=== PATIENT | male | born 1935 | race Caucasian/White ===

== ENCOUNTER 2019-09-27 00:11 | Inpatient (IN) | payer MEDICARE, MEDICAID, SELFPAY ==
[2019-09-27] VITALS (11 sets, daily range): BP systolic 76–151; BP diastolic 51–90; PULSE 60–105; RESP 16–24; TEMP 36.4–37.7; O2SAT 89–96; BMI 26.2
--- NOTE | ~2019-09-27 | XR_ITS ---
EXAMINATION: XR hip RT min 3V w AP pelvis DATE: 10/01/2019 10:14 INDICATION: Right hip pain. TECHNIQUE: An anteroposterior view of the pelvis and 3 views of right hip were obtained. COMPARISON: None. FINDINGS: Bone alignment is normal. No fracture. There is mild osteoarthritis of the hips. There is m ild lumbar spondylosis. IMPRESSION: 1. Mild osteoarthritis of the hips. Reviewed, dictated and finalized at location A.
--- NOTE | ~2019-09-27 | XR_ITS ---
XR chest 2V DATE: 10/01/2019 10:15 INDICATION: Shortness of breath. Pneumonia. TECHNIQUE: AP and lateral views COMPARISON: 09/28/2019 AP and lateral chest 09/27/2019 portable AP chest FINDINGS: There are bilateral lower lung infiltrates and/atelectasis, right greater than left. There may be mild residual right apical infiltrate. Heart size is within normal range considering medications associated with AP projection. There is ext ensive thoracic aortic calcification as well as aortic ectasia or aneurysm and tortuosity. No pleural effusion or pulmonary vascular congestion or pneumothorax. IMPRESSION: Bilateral lower lung infiltrate and/atelectasis, greater on the right, improved on the le ft and in the right apical area since 09/28/2019 Reviewed, dictated and finalized at location B. IMPRESSION: Bilateral lower lung infiltrate and/atelectasis, greater on the rig ht, improved on the left and in the right apical area since 09/28/2019
--- NOTE | ~2019-09-27 | CT_ITS ---
EXAMINATION: CT brain wo con INDICATION: Transient alteration of awareness COMPARISON: 10/30/2018 TECHNIQUE: Standard unenhanced head CT. The dose-length product (DLP) was 605.33 mGy-cm. The mA was a djusted according to patient size. Iterative reconstruction technique was employed. FINDINGS: There is no acute intraparenchymal hemorrhage. No evidence of mass lesion. No evidence of a cute infarction. There is mild periventricular and subcortical hypodensity probably related to small vessel ischemic disease. There is mild prominence of the sulci and ventricles related to cerebral atr ophy. Intracranial calcified cerebral atherosclerosis is noted. There are no extra-axial collections. There is no mass effect or midline shift. The orbits and soft tissues are unremarkable. There is mi ld mucosal thickening of the paranasal sinuses. A small left mastoid effusion is noted. IMPRESSION: 1. No acute intracranial abnormality. 2. Age related findings. Reviewed, dictated and finalized at location A.
--- NOTE | ~2019-09-27 | XR_ITS ---
EXAMINATION: XR chest 2V DATE: 10/05/2019 10:59 INDICATION: Shortness of breath TECHNIQUE: AP and lateral views of the chest are obtained. COMPARISON: 10/01/2019 FINDINGS: Bibasilar airspace opacities persist but have improved. There are trace pleural effusions. No pneumothorax is identified. The cardiomediastinal silhouette is stable. There is mild thoracic spo ndylosis. Suture anchors are noted in the right humeral head. IMPRESSION: 1. Improving bibasilar airspace opacities, consistent with atelectasis versus pneumonia. Reviewed, dictated and finalized at location B. IMPRESSION: 1. Improving bibasilar airspace opacities, consistent with atelectasis versus p neumonia.
--- NOTE | ~2019-09-27 | XR_ITS ---
EXAMINATION: XR chest 2V DATE: 09/28/2019 19:52 INDICATION: Pneumonia TECHNIQUE: AP and lateral views of the chest are obtained. COMPARISON: 09/27/2019 FINDINGS: Right apical opacities have slightly improved. Bilateral lower lobe airspace opacities pers ist with slight worsening on the left. There is no pleural effusion or pneumothorax. The cardiomedias tinal silhouette is normal. There is moderate thoracic spondylosis. IMPRESSION: 1. Bilateral airspace opacities with improvement in the right lung apex and worsening in the left olga g base, consistent with atelectasis versus pneumonia. Reviewed, dictated and finalized at location A. IMPRESSION: 1. Bilateral airspace opacities with improvement in the right lung apex and wor sening in the left lung base, consistent with atelectasis versus pneumonia.
--- NOTE | ~2019-09-27 | XR_ITS ---
EXAMINATION: XR chest 1V portable INDICATION: Transient alteration of awareness TECHNIQUE: Portable AP chest at 0053 hours COMPARISON: None available FINDINGS: There are minimal airspace opacities of the lung bases. There is also asymmetric opacity in the right lung apex. No pleural effusion or pneumothorax is identified. The heart size is normal. Ca lcified atherosclerosis is noted. Suture anchors are noted in the right humeral head. IMPRESSION: 1. Right apical and bibasilar opacities which could reflect atelectasis or pneumonia. Radiographic fo llow-up is recommended. Reviewed, dictated and finalized at location A. IMPRESSION: 1. Right apical and bibasilar opacities which could reflect atelectasis or pneu monia. Radiographic follow-up is recommended.
--- NOTE | 2019-09-27 00:23 | ECG_ITS ---
Measurements Intervals [place] Rate: 65 P: 62 WI: 186 QRS: 21 QRSD: 92 T: 45 QT: 410 QTc: 427 Interpretive Statements SINUS RHYTHM BORDERLINE ST ABNORMALITY- LATERAL LEADS BORDERLINE ECG Electronically Signed On 09-27-2019 7:50:24 CDT by Jagjit Cheung D.O.
--- NOTE | 2019-09-27 00:24 | ED.AMS ---
HPI - Altered Mental Status General Chief Complaint: Altered Mental Status Stated Complaint: sick case History of Present Illness HPI narrative: BIBEMS from [facility] enter for fever, weakness, confusion. There is a documented Temperature of 100.1 at the assisted. He was given tylenol prior to transport. No fever for EMS. They did note that he was hypotensive. Apparently he was also noted to be weak and more confused. He has dementia and it is not clear what his baseline is. The patient does report that he feels bad and has pain all over. History limited by dementia. Related Data Home Medications Medication Instructions Recorded Confirmed acetaminophen 325 mg PO Q6H PRN 09/27/19 09/27/19 atorvastatin 40 mg PO HS 09/27/19 09/27/19 brimonidine 1 drp OPHTHALMIC (EYE) Q8H 09/27/19 09/27/19 budesonide-formoterol [Symbicort] 2 puff INHALATION Q12H 09/27/19 09/27/19 buspirone 15 mg PO BID 09/27/19 09/27/19 cyanocobalamin (vitamin B-12) 1,000 mcg IM DAILY 09/27/19 09/27/19 diltiazem HCl [Cardizem] 120 mg PO DAILY 09/27/19 09/27/19 donepezil 10 mg PO HS 09/27/19 09/27/19 ergocalciferol (vitamin D2) 1,250 mcg PO WEEKLY 09/27/19 09/27/19 fluoxetine 20 mg PO DAILY 09/27/19 09/27/19 hydrocodone-acetaminophen [[place]] 1 tablet PO Q6H PRN 09/27/19 09/27/19 latanoprost 0.005 % OPHTHALMIC (EYE) DAILY 09/27/19 09/27/19 levothyroxine 100 mcg PO DAILY 09/27/19 09/27/19 lisinopril 2.5 mg PO DAILY 09/27/19 09/27/19 memantine 10 mg PO BID 09/27/19 09/27/19 metformin 1,000 mg PO BID 09/27/19 09/27/19 nitroglycerin 0.4 mg SUBLINGUAL PRN PRN 09/27/19 09/27/19 omeprazole 20 mg PO DAILY 07/19/20 07/19/20 pregabalin 100 mg PO BID 09/27/19 09/27/19 quetiapine [Seroquel] 100 mg PO HS 09/27/19 09/27/19 tuberculin PPD [Tubersol] 0.1 ml INTRADERMAL ONCE 09/27/19 09/27/19 Allergies Allergy/AdvReac Type Severity Reaction Status Date / Time No Known Allergies Allergy Unverified 10/30/18 19:38 Review of Systems Review of Systems: ROS unobtainable: Yes unobtainable due to mental status Constitutional: Constitutional: Reports fever(s) PMFSH Social History Social History Smoking status: Former smoker Alcohol intake: never Substance use: never Gender identity (if verbalized by the patient): Male Spiritual care concerns: No Exam Const: General: confusion and ill appearing Nutritional Appearance: well nourished Other: Oriented x1. HENMT: Mouth: Yes dry mucous membranes Eyes: Pupils: Equal, round and reactive pupils present EOM: EOMs intact bilaterally Resp: Effort & Inspection: normal respiratory effort Auscultation: clear to auscultation bilaterally Cardio: Rate: regular rate Rhythm: regular rhythm GI: GI Palp: Yes Soft to palpation and No Tenderness to palpation present (GI) Skin: General skin exam: normal color Neuro: General: moves all extremities Speech: Abnormal speech present (mildly difficult to understand) Course Vital Signs Vital signs: Vital Signs Temperature 36.4 C 09/27/19 00:15 Pulse Rate 67 09/27/19 00:15 Respiratory Rate 16 09/27/19 00:15 Blood Pressure 76/51 L 09/27/19 00:15 Pulse Oximetry 94 09/27/19 00:15 Temperature 36.4 C L 09/28/19 06:00 Pulse Rate 81 09/28/19 08:00 Respiratory Rate 18 09/28/19 08:00 Blood Pressure 121/85 09/28/19 06:00 Pulse Oximetry 94 09/28/19 08:00 MDM - Altered Mental Status MDM Narrative Medical decision making narrative: Reportedly had fever at the assisted. Mildly elevated WBCs. UA and CXR unrevealing. Creatinine up significantly from baseline. Head CT negative for acute injury Initially hypotensive. corrected rapidly with fluids. Will give fluids, swab for COVID-19 and admit for observation. Differential Diagnosis Differential diagnosis: Likely delirium, dementia and sepsis Medical Records Attestation: I reviewed the patient's medical records. Lab Data Attestation
[2019-09-27 01:02] LABS: Basophils Absolute Auto 0.1 K/mm3 (0.0-0.1); Basophils Percent Auto 0.6 % (0.2-1.2); Eosinophils Absolute Auto 0.2 K/mm3 (0-0.3); Eosinophils Percent Auto 1.4 % (0-4.4); Hematocrit 38.7 % (42.0-52.0); Hemoglobin 13.2 g/dL (14.0-18.0); Immature Granulocyte Absolute 0.13 K/mm3 (0.00-0.031); Immature Granulocyte Percent A 1.1 % (0-0.5); Lymphocytes Absolute Auto 2.34 K/mm3 (0.9-3.2); Lymphocytes Percent Auto 18.9 % (18.3-44.2); Mean Corpuscular HGB Conc 34.1 g/dl (32-36); Mean Corpuscular Hemoglobin 33.3 pg (26-34); Mean Corpuscular Volume 97.7 fl (80-100); Mean Platelet Volume 11.2 fl (7.4-10.4); Monocytes Absolute Auto 1.4 K/mm3 (0.1-0.6); Monocytes Percent Auto 11.3 % (2.6-8.5); Neutrophils Absolute Auto 8.3 K/mm3 (1.3-6.7); Neutrophils Percent Auto 66.7 % (45.5-73.1); Platelet Count Result 242 k/mm3 (150-375); Red Blood Count 3.96 M/mm3 (4.6-6.20); Red Cell Distribution Width 13.8 % (11.5-14.5); White Blood Count 12.4 K/mm3 (4.5-10.0)
[2019-09-27 01:11] LABS: INR 1.1
[2019-09-27 01:12] LABS: Partial Thromboplastin Time 27.7 SECONDS (22.3-36.8)
[2019-09-27 01:13] LABS: Lactic Acid Reflex 1.9 mmol/L (0.7-2.1)
[2019-09-27 01:25] LABS: Troponin I 0.017 ng/mL (0.000-0.034)
[2019-09-27 01:27] LABS: Alanine Aminotransferase 30 U/L (4-50); Albumin Level 4.3 g/dL (3.5-5.1); Alkaline Phosphatase 72 U/L (38-126); Aspartate Amino Transferase 80 U/L (17-59); Bilirubin,Total 0.8 mg/dL (0.2-1.3); Blood Urea Nitrogen 35 mg/dL (9-20); Calcium 9.1 mg/dL (8.4-10.2); Carbon Dioxide 22 mmol/L (22-30); Chloride 103 mmol/L (98-107); Estimated CRCL calculation 23 ml/min; Estimated Glomerular Filt Rate 25; Glucose 153 mg/dL (75-110); Potassium 4.2 mmol/L (3.4-5.0); Sodium 137 mmol/L (137-145)
[2019-09-27 01:51] LABS: CRP 3.1 mg/dL (<1.0)
[2019-09-27] MEDS: SODIUM CHLORIDE 0.9% IV 1,000 ML 999 ML IV CONT (01:52)
[2019-09-27 02:27] LABS: Add Urine Microscopic? YES; Appearance Urine Clear (Clear); Bacteria Urine Trace /hpf; Bilirubin Urine Negative (Negative); Blood Urine Negative (Negative); Color Urine Yellow (Yellow); Glucose Urine UA Negative (Negative); Ketones Urine Negative (Negative); Leukocyte Esterase Ur Negative LEU/UL (Negative); Mucus Urine Rare /lpf; Nitrate Urine Negative (Negative); Protein Urine 1+ mg/dL (Negative); RBC Urine 0-2 /hpf (0-2); Specific Grav Ur 1.018 (1.001-1.035); Urobilinogen Urine Negative mg/dL (<2.0); WBC Urine 0-3 /hpf
[2019-09-27 03:10] LABS: Alveolar/Arterial O2 Gradient 86.1 mmHg; Base Excess ABG -4.8 mEq/l (+/-2.0); Fractional Inspired Oxygen 28 %; Oxygen Content ABG 16.5 %vol (16.0-22.0); Oxygen Saturation ABG 93.8 % (95.0-100.0); Oxyhemoglobin 90.7 % THb (90.0-100.0); PCO2 ABG 36.3 mmHg (35.0-45.0); PO2 ABG 70.7 mmHg (80.0-100.0); PO2 FiO2 Ratio Arterial Blood 2.52 %; Total Hemoglobin 12.9 g/dL (12.0-18.0)
[2019-09-27 03:11] LABS: Device NASAL CANNULA; Modified Allen's Test Pass; Site Drawn RIGHT RADIAL
--- NOTE | 2019-09-27 04:35 | ADMGEN ---
This patient, Kevin Gan, was admitted to [facility] Surg Room 324-01. Patient/family oriented to hospital policies and general routines including ID bracelet, bed and alarms, visiting hours, pain management, procedures, bathroom and other care routines, personal items, smoking policy, room service/diet, and visiting hours. Valuables list has been completed. Information on how to activate the Rapid Response Team has been discussed. Patient/Family are encouraged to report perceived risks to care and to ask questions if they do not understand what they are told or what they should do.
[2019-09-27] MEDS: LACTATED RINGERS 1,000 ML 125 ML IV CONT ×2 (05:02→18:13)
--- NOTE | 2019-09-27 05:43 | PC.NURSE ---
Pt comes [facility] no medical history from [facility]. Jeni reardon says their computers are down for the time being. They are unable to give me history until they are fixed.
[2019-09-27 12:58] LABS: SARS-CoV-2 RNA PCR Negative
--- NOTE | 2019-09-27 15:17 | PM.IMHP ---
H&P: HPI History of Present Illness Chief complaint: FELICITAS, generalized weakness Narrative: Kevin Gan is a 83 year old male poor historian, mild fever and weakness from in. Covid ruled out today. FELICITAS on admission. Pt had ct head which was negative, cxr possible pneumonia. Pt is dm, psychotic behaviour and hypothyoidism, cad, high cholesterol. I do not see a ER note. Pt still has a fever today, 37.7f, however is not able to give a good history. [facility] as pt is not a good historian. information given -pt is usually oriented, yesterday could not feed himself, pt had 100.1 fever for 1 days, no cough, just confused. Not been in the hospital recently. Usually well. Pt usually walks around and is active. Requested Nurse to enter pts medical and surgical history in the notes. Review of Systems Review of Systems: ROS unobtainable: Yes unobtainable due to medical condition PMFSH Social History Social History Smoking status: Former smoker Alcohol intake: never Substance use: never Gender identity (if verbalized by the patient): Male Spiritual care concerns: No Meds Home Medications and Allergies Home Medications Medication Instructions Recorded Confirmed Type acetaminophen 325 mg PO Q6H PRN 09/27/19 09/27/19 History atorvastatin 40 mg PO HS 09/27/19 09/27/19 History brimonidine 1 drp OPHTHALMIC (EYE) Q8H 09/27/19 09/27/19 History budesonide-formoterol [Symbicort] 2 puff INHALATION Q12H 09/27/19 09/27/19 History buspirone 15 mg PO BID 09/27/19 09/27/19 History cyanocobalamin (vitamin B-12) 1,000 mcg IM DAILY 09/27/19 09/27/19 History diltiazem HCl [Cardizem] 120 mg PO DAILY 09/27/19 09/27/19 History donepezil 10 mg PO HS 09/27/19 09/27/19 History ergocalciferol (vitamin D2) 1,250 mcg PO WEEKLY 09/27/19 09/27/19 History fluoxetine 20 mg PO DAILY 09/27/19 09/27/19 History hydrocodone-acetaminophen [[place]] 1 tablet PO Q6H PRN 09/27/19 09/27/19 History latanoprost 0.005 % OPHTHALMIC (EYE) DAILY 09/27/19 09/27/19 History levothyroxine 100 mcg PO DAILY 09/27/19 09/27/19 History lisinopril 2.5 mg PO DAILY 09/27/19 09/27/19 History memantine 10 mg PO BID 09/27/19 09/27/19 History metformin 1,000 mg PO BID 09/27/19 09/27/19 History nitroglycerin 0.4 mg SUBLINGUAL PRN PRN 09/27/19 09/27/19 History omeprazole 20 mg PO DAILY 09/27/19 09/27/19 History pregabalin 100 mg PO BID 09/27/19 09/27/19 History quetiapine [Seroquel] 100 mg PO HS 09/27/19 09/27/19 History tuberculin PPD [Tubersol] 0.1 ml INTRADERMAL ONCE 09/27/19 09/27/19 History Allergies Allergy/AdvReac Type Severity Reaction Status Date / Time No Known Allergies Allergy Unverified 10/30/18 19:38 Vital Signs Vital Signs - 24 hr 09/27/19 00:15 09/27/19 00:43 09/27/19 02:03 Temperature 36.4 C 36.7 C Pulse Rate 67 64 60 Respiratory Rate 16 16 16 Blood Pressure 76/51 L 111/66 117/72 Pulse Oximetry 94 96 96 09/27/19 04:29 09/27/19 04:35 09/27/19 06:00 Temperature 36.9 C 36.9 C 36.7 C Pulse Rate 74 70 70 Respiratory Rate 16 18 20 Blood Pressure 101/58 L 105/65 116/86 Pulse Oximetry 95 93 90 09/27/19 10:00 09/27/19 14:00 Temperature 36.8 C 37.7 C H Pulse Rate 78 105 H Respiratory Rate 18 18 Blood Pressure 143/73 H 127/62 Pulse Oximetry 94 89 L Exam Const: General: other (elderly man, pleasantly confused, having a fever ) Eyes: General: appearance normal, both eyes and all related structures Pupils: Equal, round and reactive pupils present Neck: Neck: supple Chest: Chest palpation & inspection: normal inspection of the chest Resp: Effort & Inspection: normal respiratory effort Auscultation: breath sounds absent and diminished lung sounds Cardio: Jugular venous distension: no JVD Rhythm: regular rhythm Heart sounds: S1 normal heart sound present and S2 normal heart sound present GI: Inspection: normal to inspection GI Palp: No abdominal tenderness, Yes Soft to palpa
[2019-09-27] MEDS: ATORVASTATIN 40 MG TABLET PO (21:07)
[2019-09-27] MEDS: QUEtiapine FUMARATE 100 MG TABLET PO (21:07)
[2019-09-27] MEDS: busPIRone HCL 5 MG TABLET 15 MG PO (21:08)
[2019-09-27] MEDS: MEMANTINE 10 MG TABLET PO (21:08)
[2019-09-27] MEDS: DONEPEZIL HCL 10 MG TABLET PO (21:08)
[2019-09-27] MEDS: BRIMONIDINE TARTRATE 0.15% 5 ML OPHTH SOLN 1 DROP EACH EYE (21:09)
[2019-09-28 00:33] LABS: Glucose Point of Care 206 (65-105)
[2019-09-28] MEDS: LACTATED RINGERS 1,000 ML 125 ML IV CONT ×2 (03:00→16:14)
[2019-09-28 06:00] VITALS: BP 121/85; PULSE 81; RESP 18; TEMP 36.4; O2SAT 94
[2019-09-28 06:22] LABS: Hematocrit 37.5 % (42.0-52.0); Hemoglobin 12.5 g/dL (14.0-18.0); Mean Corpuscular HGB Conc 33.3 g/dl (32-36); Mean Corpuscular Hemoglobin 33.2 pg (26-34); Mean Corpuscular Volume 99.7 fl (80-100); Mean Platelet Volume 11.1 fl (7.4-10.4); Platelet Count Result 216 k/mm3 (150-375); Red Blood Count 3.76 M/mm3 (4.6-6.20); White Blood Count 14.6 K/mm3 (4.5-10.0)
[2019-09-28 06:32] LABS: Blood Urea Nitrogen 39 mg/dL (9-20); Calcium 8.4 mg/dL (8.4-10.2); Carbon Dioxide 24 mmol/L (22-30); Chloride 103 mmol/L (98-107); Estimated CRCL calculation 27 ml/min; Estimated Glomerular Filt Rate 30; Glucose 192 mg/dL (75-110); Potassium 4.2 mmol/L (3.4-5.0); Sodium 138 mmol/L (137-145)
[2019-09-28] MEDS: LEVOTHYROXINE SODIUM 100 MCG TABLET PO (06:33)
[2019-09-28] MEDS: BRIMONIDINE TARTRATE 0.15% 5 ML OPHTH SOLN 1 DROP EACH EYE ×3 (06:33→21:01)
[2019-09-28 08:00] VITALS: PULSE 81; RESP 18; O2SAT 94
[2019-09-28] MEDS: FLUoxetine HCL 20 MG CAPSULE PO (10:59)
[2019-09-28] MEDS: metFORMIN HCL 500 MG TABLET PO ×2 (11:00→16:14)
[2019-09-28] MEDS: CYANOCOBALAMIN INJ 1,000 MCG/ML VIAL 1000 MCG IM (11:01)
[2019-09-28] MEDS: busPIRone HCL 5 MG TABLET 15 MG PO ×2 (11:01→21:01)
[2019-09-28] MEDS: MEMANTINE 10 MG TABLET PO ×2 (11:03→21:01)
[2019-09-28] MEDS: PANTOPRAZOLE 40 MG TABLET PO (11:03)
[2019-09-28] MEDS: LATANOPROST 0.005% OP SOLN 2.5 ML BTL 1 DROP EACH EYE (11:03)
--- NOTE | 2019-09-28 13:31 | PM.IMPN ---
Progress Note: A&P Assessment and Plan (1) FELICITAS (acute kidney injury): Code(s): N17.9 - Acute kidney failure, unspecified Status: Acute Assessment and Plan: Pt needs fluid hydration creat is 2.5. Missing ER note, pt does not appear to have admissions here in the past Pt is from [facility] Requested Nurse to enter pts medical and surgical history in the notes And pts medication list 09/28/19 13:31 patient 83-year-old male with resident nursing was sent to emergency department with fever being tired and fatigue unfortunately patient is unable to provide any history review of symptom and there are no ER documentation available, chest x-ray showed pneumonia patient with fever most likely community-acquired pneumonia being treated with Rocephin azithromycin, will repeat chest x-ray in 2 days, will have a PT OT evaluate the patient patient does deny cough shortness of breath fever or chills at the present time (2) Fever: Code(s): R50.9 - Fever, unspecified Status: Acute Assessment and Plan: Ongoing fever and tachycardiac pt is septic will order BC, UA is negative, CXR shows Pneumonia (3) Pneumonia: Code(s): J18.9 - Pneumonia, unspecified organism Status: Acute Assessment and Plan: From Chest xray, WCC high, Pt had fevers ? CAP treat with IV rocephin and IV zithromax Subjective Date/time seen: 09/28/19 13:31 patient 83-year-old male with resident nursing was sent to emergency department with fever being tired and fatigue unfortunately patient is unable to provide any history review of symptom and there are no ER documentation available, chest x-ray showed pneumonia patient with fever most likely community-acquired pneumonia being treated with Rocephin azithromycin, will repeat chest x-ray in 2 days, will have a PT OT evaluate the patient patient does deny cough shortness of breath fever or chills at the present time Review of Systems Review of Systems: ROS unobtainable: Yes unobtainable due to medical condition Exam Narrative: Exam Narrative: elderly frail Const: General: comfortable and no acute distress HENMT: General nose exam: Normal nares present Mouth: Yes moist mucous membranes Eyes: General: appearance normal, both eyes and all related structures Sclera: sclerae normal Neck: Neck: supple Resp: Other: bilateral fair air entry with rhonchi Cardio: Rate: regular rate Rhythm: regular rhythm GI: Auscultation: normal bowel sounds Skin: General skin exam: normal color Neuro: Speech: normal speech Sensory Exam: normal sensation Extrem: General: normal to inspection Psych: Affect: Anxious affect present Objective Data Vital Signs Vital Signs: Vital Signs - 24 hr 09/27/19 14:00 09/27/19 19:25 09/27/19 20:00 Temperature 99.9 F H Pulse Rate 105 H 72 93 Respiratory Rate 18 24 H 20 Blood Pressure 127/62 Pulse Oximetry 89 L 90 09/27/19 22:00 09/28/19 06:00 09/28/19 08:00 Temperature 97.5 F L 97.5 F L Pulse Rate 93 81 81 Respiratory Rate 20 18 18 Blood Pressure 151/90 H 121/85 Pulse Oximetry 90 94 94 Intake/Output Intake/Output: Intake & Output 09/25/19 09/26/19 09/27/19 09/28/19 23:59 23:59 23:59 23:59 Intake Total 2330 1050 Output Total 120 Balance 2210 1050 Meds/Results Medications: Active Medications Generic Name Dose Route Start Last Admin Trade Name Freq PRN Reason Stop Dose Admin Acetaminophen 325 mg 09/27/19 15:41 Tylenol Tablet PO Q6H PRN pain 1-3 Hydrocodone Bitart/Acetaminophen 1 tab 09/27/19 15:41 [place] 10-325 Mg PO Q6H PRN Pain 4-10 Atorvastatin Calcium 40 mg 09/27/19 21:00 09/27/19 21:07 Lipitor PO 40 mg HS ADILSON Administration Brimonidine Tartrate 1 drop 09/27/19 22:00 09/28/19 06:33 [place] P 0.15% Ophth EACH EYE 1 drop Q8HR ADILSON Administration Budesonide/Formoterol Fumarate 2 puff 09/27/19 20:00 09/28/19 07:51
[2019-09-28 14:00] VITALS: BP 132/78; PULSE 80; RESP 18; TEMP 37.2; O2SAT 98
[2019-09-28 18:07] LABS: Glucose Point of Care 216 (65-105)
[2019-09-28] MEDS: QUEtiapine FUMARATE 100 MG TABLET PO (21:01)
[2019-09-28] MEDS: DONEPEZIL HCL 10 MG TABLET PO (21:01)
[2019-09-28] MEDS: ATORVASTATIN 40 MG TABLET PO (21:01)
[2019-09-28 21:57] VITALS: BP 139/97; PULSE 73; RESP 22; TEMP 37.4; O2SAT 90
[2019-09-29 01:51] LABS: Glucose Point of Care 191 (65-105)
[2019-09-29] MEDS: LACTATED RINGERS 1,000 ML 125 ML IV CONT ×3 (02:00→21:58)
[2019-09-29 06:00] VITALS: BP 142/63; PULSE 67; RESP 22; TEMP 37.9; O2SAT 90
[2019-09-29] MEDS: BRIMONIDINE TARTRATE 0.15% 5 ML OPHTH SOLN 1 DROP EACH EYE ×3 (06:02→21:53)
[2019-09-29] MEDS: LEVOTHYROXINE SODIUM 100 MCG TABLET PO (06:02)
[2019-09-29 06:03] LABS: Hematocrit 32.5 % (42.0-52.0); Hemoglobin 10.8 g/dL (14.0-18.0); Mean Corpuscular HGB Conc 33.2 g/dl (32-36); Mean Corpuscular Hemoglobin 33.1 pg (26-34); Mean Corpuscular Volume 99.7 fl (80-100); Mean Platelet Volume 10.6 fl (7.4-10.4); Platelet Count Result 191 k/mm3 (150-375); Red Blood Count 3.26 M/mm3 (4.6-6.20); Red Cell Distribution Width 13.7 % (11.5-14.5); White Blood Count 10.8 K/mm3 (4.5-10.0)
[2019-09-29 06:20] LABS: Blood Urea Nitrogen 31 mg/dL (9-20); Carbon Dioxide 25 mmol/L (22-30); Chloride 105 mmol/L (98-107); Estimated CRCL calculation 42 ml/min; Estimated Glomerular Filt Rate 53; Glucose 155 mg/dL (75-110); Sodium 136 mmol/L (137-145)
[2019-09-29 08:00] VITALS: PULSE 67; RESP 22; O2SAT 90
[2019-09-29] MEDS: CYANOCOBALAMIN INJ 1,000 MCG/ML VIAL 1000 MCG IM (10:13)
[2019-09-29] MEDS: metFORMIN HCL 500 MG TABLET PO ×2 (10:15→17:34)
[2019-09-29] MEDS: PANTOPRAZOLE 40 MG TABLET PO (10:15)
[2019-09-29] MEDS: busPIRone HCL 5 MG TABLET 15 MG PO ×2 (10:15→21:52)
[2019-09-29] MEDS: FLUoxetine HCL 20 MG CAPSULE PO (10:16)
[2019-09-29] MEDS: LATANOPROST 0.005% OP SOLN 2.5 ML BTL 1 DROP EACH EYE (10:16)
[2019-09-29] MEDS: MEMANTINE 10 MG TABLET PO ×2 (10:16→21:52)
[2019-09-29 14:00] VITALS: BP 140/82; PULSE 67; RESP 20; TEMP 37.1; O2SAT 100
--- NOTE | 2019-09-29 14:53 | PM.IMPN ---
Progress Note: A&P Assessment and Plan (1) FELICITAS (acute kidney injury): Code(s): N17.9 - Acute kidney failure, unspecified Status: Acute Assessment and Plan: Pt needs fluid hydration creat is 2.5. Missing ER note, pt does not appear to have admissions here in the past Pt is from [facility] Requested Nurse to enter pts medical and surgical history in the notes And pts medication list 09/29/19 14:53 patient 83-year-old male with resident nursing was sent to emergency department with fever being tired and fatigue unfortunately patient is unable to provide any history review of symptom and there are no ER documentation available, chest x-ray showed pneumonia patient with fever most likely community-acquired pneumonia being treated with Rocephin azithromycin, patient still complains cough shortness of breath, repeat x-ray showed bilateral infiltrate, will connect continue present management have PT OT evaluate the patient (2) Fever: Code(s): R50.9 - Fever, unspecified Status: Acute Assessment and Plan: Ongoing fever and tachycardiac pt is septic will order BC, UA is negative, CXR shows Pneumonia (3) Pneumonia: Code(s): J18.9 - Pneumonia, unspecified organism Status: Acute Assessment and Plan: From Chest xray, WCC high, Pt had fevers ? CAP treat with IV rocephin and IV zithromax Subjective Date/time seen: 09/29/19 14:53 patient 83-year-old male with resident nursing was sent to emergency department with fever being tired and fatigue unfortunately patient is unable to provide any history review of symptom and there are no ER documentation available, chest x-ray showed pneumonia patient with fever most likely community-acquired pneumonia being treated with Rocephin azithromycin, patient still complains cough shortness of breath, repeat x-ray showed bilateral infiltrate, will connect continue present management have PT OT evaluate the patient Review of Systems Review of Systems: All systems reviewed & are unremarkable except as noted in HPI and below Exam Narrative: Exam Narrative: elderly frail Const: General: no acute distress and uncomfortable HENMT: General nose exam: Normal nares present Mouth: Yes moist mucous membranes Eyes: General: appearance normal, both eyes and all related structures Sclera: sclerae normal Neck: Neck: supple Resp: Other: bilateral poor air entry with rhonchi Cardio: Rate: regular rate Rhythm: regular rhythm GI: Auscultation: normal bowel sounds Skin: General skin exam: normal color Neuro: Speech: normal speech Sensory Exam: normal sensation Extrem: General: normal to inspection Psych: Affect: Anxious affect present Objective Data Vital Signs Vital Signs: Vital Signs - 24 hr 09/28/19 21:57 09/29/19 06:00 09/29/19 08:00 Temperature 99.3 F 100.2 F H Pulse Rate 73 67 67 Respiratory Rate 22 H 22 H 22 H Blood Pressure 139/97 H 142/63 H Pulse Oximetry 90 90 90 Intake/Output Intake/Output: Intake & Output 09/26/19 09/27/19 09/28/19 09/29/19 23:59 23:59 23:59 23:59 Intake Total 2580 3040 2200 Output Total 120 Balance 2460 3040 2200 Meds/Results Medications: Active Medications Generic Name Dose Route Start Last Admin Trade Name Freq PRN Reason Stop Dose Admin Acetaminophen 325 mg 09/27/19 15:41 Tylenol Tablet PO Q6H PRN pain 1-3 Hydrocodone Bitart/Acetaminophen 1 tab 09/27/19 15:41 [place] 10-325 Mg PO Q6H PRN Pain 4-10 Atorvastatin Calcium 40 mg 09/27/19 21:00 09/28/19 21:01 Lipitor PO 40 mg HS ADILSON Administration Brimonidine Tartrate 1 drop 09/27/19 22:00 09/29/19 14:18 [place] P 0.15% Ophth EACH EYE 1 drop Q8HR ADILSON Administration Budesonide/Formoterol Fumarate 2 puff 09/27/19 20:00 09/29/19 08:46 Symbicort 160-4.5 Mcg (*Sp) Inhaler INHALATION 2 puff Q12HRT ADILSON Administration Buspirone HCl 15 mg 09/27/19
[2019-09-29] MEDS: DONEPEZIL HCL 10 MG TABLET PO (21:52)
[2019-09-29] MEDS: QUEtiapine FUMARATE 100 MG TABLET PO (21:52)
[2019-09-29] MEDS: ATORVASTATIN 40 MG TABLET PO (21:53)
[2019-09-29 22:00] VITALS: BP 163/78; PULSE 70; RESP 20; TEMP 37.2; O2SAT 91
[2019-09-30 06:00] VITALS: BP 146/62; PULSE 67; RESP 18; TEMP 37.2; O2SAT 93
[2019-09-30 06:04] LABS: Hemoglobin 10.4 g/dL (14.0-18.0); Mean Corpuscular HGB Conc 33.5 g/dl (32-36); Mean Corpuscular Hemoglobin 33.2 pg (26-34); Mean Platelet Volume 10.6 fl (7.4-10.4); Platelet Count Result 187 k/mm3 (150-375); Red Blood Count 3.13 M/mm3 (4.6-6.20); Red Cell Distribution Width 13.5 % (11.5-14.5); White Blood Count 9.5 K/mm3 (4.5-10.0)
[2019-09-30 06:23] LABS: Blood Urea Nitrogen 23 mg/dL (9-20); Calcium 7.9 mg/dL (8.4-10.2); Carbon Dioxide 25 mmol/L (22-30); Chloride 107 mmol/L (98-107); Estimated CRCL calculation 50 ml/min; Estimated Glomerular Filt Rate > 60; Glucose 165 mg/dL (75-110); Sodium 137 mmol/L (137-145)
[2019-09-30] MEDS: LACTATED RINGERS 1,000 ML 125 ML IV CONT ×2 (06:35→14:39)
[2019-09-30] MEDS: LEVOTHYROXINE SODIUM 100 MCG TABLET PO (06:36)
[2019-09-30] MEDS: BRIMONIDINE TARTRATE 0.15% 5 ML OPHTH SOLN 1 DROP EACH EYE ×3 (06:40→20:16)
[2019-09-30] MEDS: LATANOPROST 0.005% OP SOLN 2.5 ML BTL 1 DROP EACH EYE (08:54)
[2019-09-30] MEDS: PANTOPRAZOLE 40 MG TABLET PO (08:54)
[2019-09-30] MEDS: busPIRone HCL 5 MG TABLET 15 MG PO ×2 (08:54→20:15)
[2019-09-30] MEDS: FLUoxetine HCL 20 MG CAPSULE PO (08:54)
[2019-09-30] MEDS: CYANOCOBALAMIN INJ 1,000 MCG/ML VIAL 1000 MCG IM (08:54)
[2019-09-30] MEDS: MEMANTINE 10 MG TABLET PO ×2 (08:54→20:15)
[2019-09-30] MEDS: metFORMIN HCL 500 MG TABLET PO ×2 (08:55→17:45)
--- NOTE | 2019-09-30 12:42 | PM.IMPN ---
Progress Note: A&P Assessment and Plan (1) FELICITAS (acute kidney injury): Code(s): N17.9 - Acute kidney failure, unspecified Status: Acute Assessment and Plan: Pt needs fluid hydration creat is 2.5. Missing ER note, pt does not appear to have admissions here in the past Pt is from [facility] Requested Nurse to enter pts medical and surgical history in the notes And pts medication list 09/30/19 12:42 patient 83-year-old male with resident nursing was sent to emergency department with fever being tired and fatigue unfortunately patient is unable to provide any history review of symptom and there are no ER documentation available, chest x-ray showed pneumonia patient with fever most likely community-acquired pneumonia being treated with Rocephin azithromycin, patient still complains cough shortness of breath, repeat x-ray on 09/27 showed bilateral infiltrate, will connect continue present management will repeat checks x-ray tomorrow and further recommendation to follow, have PT OT evaluate the patient (2) Fever: Code(s): R50.9 - Fever, unspecified Status: Acute Assessment and Plan: Ongoing fever and tachycardiac pt is septic will order BC, UA is negative, CXR shows Pneumonia (3) Pneumonia: Code(s): J18.9 - Pneumonia, unspecified organism Status: Acute Assessment and Plan: From Chest xray, WCC high, Pt had fevers ? CAP treat with IV rocephin and IV zithromax Subjective Date/time seen: 09/30/19 12:42 patient 83-year-old male with resident nursing was sent to emergency department with fever being tired and fatigue unfortunately patient is unable to provide any history review of symptom and there are no ER documentation available, chest x-ray showed pneumonia patient with fever most likely community-acquired pneumonia being treated with Rocephin azithromycin, patient still complains cough shortness of breath, repeat x-ray on 09/27 showed bilateral infiltrate, will connect continue present management will repeat checks x-ray tomorrow and further recommendation to follow, have PT OT evaluate the patient Review of Systems Review of Systems: All systems reviewed & are unremarkable except as noted in HPI and below Exam Narrative: Exam Narrative: elderly frail Const: General: comfortable and no acute distress HENMT: General nose exam: Normal nares present Mouth: Yes moist mucous membranes Eyes: General: appearance normal, both eyes and all related structures Sclera: sclerae normal Neck: Neck: supple Resp: Other: bilateral fair air entry with rhonchi Cardio: Rate: regular rate Rhythm: regular rhythm GI: Auscultation: normal bowel sounds Skin: General skin exam: normal color Neuro: Speech: normal speech Sensory Exam: normal sensation Extrem: General: normal to inspection Psych: Affect: Anxious affect present Objective Data Vital Signs Vital Signs: Vital Signs - 24 hr 09/29/19 14:00 09/29/19 22:00 09/30/19 06:00 Temperature 98.7 F 99.0 F 99.0 F Pulse Rate 67 70 67 Respiratory Rate 20 20 18 Blood Pressure 140/82 163/78 H 146/62 H Pulse Oximetry 100 91 93 Intake/Output Intake/Output: Intake & Output 09/27/19 09/28/19 09/29/19 09/30/19 23:59 23:59 23:59 23:59 Intake Total 2580 3040 4580 1200 Output Total 120 Balance 2460 3040 4580 1200 Meds/Results Medications: Active Medications Generic Name Dose Route Start Last Admin Trade Name Freq PRN Reason Stop Dose Admin Acetaminophen 325 mg 09/27/19 15:41 Tylenol Tablet PO Q6H PRN pain 1-3 Hydrocodone Bitart/Acetaminophen 1 tab 09/27/19 15:41 [place] 10-325 Mg PO Q6H PRN Pain 4-10 Atorvastatin Calcium 40 mg 09/27/19 21:00 09/29/19 21:53 Lipitor PO 40 mg HS ADILSON Administration Brimonidine Tartrate 1 drop 09/27/19 22:00 09/30/19 06:40 Alphagan P 0.15% Ophth EACH EYE 1 drop Q8HR ADILSON Administration Budesonide/Formoterol Fu
[2019-09-30 14:00] VITALS: BP 160/67; PULSE 61; RESP 18; TEMP 36.7; O2SAT 92
[2019-09-30] MEDS: ACETAMINOPHEN 325 MG TABLET PO (15:52)
[2019-09-30 20:00] VITALS: PULSE 61; RESP 18; O2SAT 92
[2019-09-30] MEDS: DONEPEZIL HCL 10 MG TABLET PO (20:15)
[2019-09-30] MEDS: ATORVASTATIN 40 MG TABLET PO (20:15)
[2019-09-30] MEDS: QUEtiapine FUMARATE 100 MG TABLET PO (20:15)
[2019-09-30 21:56] VITALS: BP 156/78; PULSE 64; RESP 20; TEMP 36.8; O2SAT 92
[2019-10-01] MEDS: LACTATED RINGERS 1,000 ML 125 ML IV CONT ×3 (01:30→17:32)
[2019-10-01] MEDS: BRIMONIDINE TARTRATE 0.15% 5 ML OPHTH SOLN 1 DROP EACH EYE ×3 (04:59→21:13)
[2019-10-01] MEDS: LEVOTHYROXINE SODIUM 100 MCG TABLET PO (04:59)
[2019-10-01 06:00] VITALS: BP 173/80; PULSE 71; RESP 20; TEMP 36.8; O2SAT 92
[2019-10-01 06:08] LABS: Hematocrit 31.5 % (42.0-52.0); Hemoglobin 10.5 g/dL (14.0-18.0); Mean Corpuscular HGB Conc 33.3 g/dl (32-36); Mean Corpuscular Hemoglobin 32.8 pg (26-34); Mean Corpuscular Volume 98.4 fl (80-100); Mean Platelet Volume 10.9 fl (7.4-10.4); Platelet Count Result 212 k/mm3 (150-375); Red Cell Distribution Width 13.2 % (11.5-14.5); White Blood Count 8.5 K/mm3 (4.5-10.0)
[2019-10-01 06:23] LABS: Anion Gap 8.9 mmol/L (7-16); Blood Urea Nitrogen 17 mg/dL (9-20); Calcium 8.5 mg/dL (8.4-10.2); Carbon Dioxide 26 mmol/L (22-30); Chloride 107 mmol/L (98-107); Estimated CRCL calculation 60 ml/min; Estimated Glomerular Filt Rate > 60; Glucose 187 mg/dL (75-110); Potassium 3.9 mmol/L (3.4-5.0); Sodium 138 mmol/L (137-145)
[2019-10-01 08:00] VITALS: PULSE 71; RESP 20; O2SAT 92
[2019-10-01] MEDS: busPIRone HCL 5 MG TABLET 15 MG PO ×2 (08:22→21:12)
[2019-10-01] MEDS: CYANOCOBALAMIN INJ 1,000 MCG/ML VIAL 1000 MCG IM (08:22)
[2019-10-01] MEDS: metFORMIN HCL 500 MG TABLET PO ×2 (08:22→16:20)
[2019-10-01] MEDS: LATANOPROST 0.005% OP SOLN 2.5 ML BTL 1 DROP EACH EYE (08:23)
[2019-10-01] MEDS: FLUoxetine HCL 20 MG CAPSULE PO (08:23)
[2019-10-01] MEDS: MEMANTINE 10 MG TABLET PO ×2 (08:23→21:12)
[2019-10-01] MEDS: PANTOPRAZOLE 40 MG TABLET PO (08:24)
[2019-10-01 09:49] VITALS: BMI 10.0
--- NOTE | 2019-10-01 13:50 | PM.IMPN ---
Progress Note: A&P Assessment and Plan (1) FELICITAS (acute kidney injury): Code(s): N17.9 - Acute kidney failure, unspecified Status: Acute Assessment and Plan: Pt needs fluid hydration creat is 2.5. Missing ER note, pt does not appear to have admissions here in the past Pt is from [facility] Requested Nurse to enter pts medical and surgical history in the notes And pts medication list 10/01/19 13:50 patient 83-year-old male with resident nursing was sent to emergency department with fever being tired and fatigue unfortunately patient is unable to provide any history review of symptom and there are no ER documentation available, chest x-ray showed pneumonia patient with fever most likely community-acquired pneumonia being treated with Rocephin azithromycin, patient still complains cough shortness of breath, repeat x-ray on 09/27 showed bilateral infiltrate, will connect continue present management, repeat checks x-ray showed improvement in pneumonia and patient is clinically improving, patient also complains pain in his right hip with movement however patient is a poor historian, to further evaluate x-ray was which is negative for any acute injury will have a PT OT evaluate the pain and further recommendation to follow, if remains clinically stable, may discharge patient home tomorrow (2) Fever: Code(s): R50.9 - Fever, unspecified Status: Acute Assessment and Plan: Ongoing fever and tachycardiac pt is septic will order BC, UA is negative, CXR shows Pneumonia (3) Pneumonia: Code(s): J18.9 - Pneumonia, unspecified organism Status: Acute Assessment and Plan: From Chest xray, WCC high, Pt had fevers ? CAP treat with IV rocephin and IV zithromax Subjective Date/time seen: 10/01/19 13:50 patient 83-year-old male with resident nursing was sent to emergency department with fever being tired and fatigue unfortunately patient is unable to provide any history review of symptom and there are no ER documentation available, chest x-ray showed pneumonia patient with fever most likely community-acquired pneumonia being treated with Rocephin azithromycin, patient still complains cough shortness of breath, repeat x-ray on 09/27 showed bilateral infiltrate, will connect continue present management, repeat checks x-ray showed improvement in pneumonia and patient is clinically improving, patient also complains pain in his right hip with movement however patient is a poor historian, to further evaluate x-ray was which is negative for any acute injury will have a PT OT evaluate the pain and further recommendation to follow, if remains clinically stable, may discharge patient home tomorrow Review of Systems Review of Systems: All systems reviewed & are unremarkable except as noted in HPI and below Exam Narrative: Exam Narrative: elderly frail Const: General: comfortable and no acute distress HENMT: General nose exam: Normal nares present Mouth: Yes moist mucous membranes Eyes: General: appearance normal, both eyes and all related structures Sclera: sclerae normal Neck: Neck: supple Resp: Other: bilateral air fair entry with rhonchi Cardio: Rate: regular rate Rhythm: regular rhythm GI: Auscultation: normal bowel sounds Skin: General skin exam: normal color Neuro: Speech: normal speech Extrem: General: normal to inspection Other: bilateral lower extremity symmetrical there is no internal or external rotation Psych: Affect: Anxious affect present Objective Data Vital Signs Vital Signs: Vital Signs - 24 hr 09/30/19 14:00 09/30/19 20:00 09/30/19 21:56 Temperature 98.0 F 98.2 F Pulse Rate 61 61 64 Respiratory Rate 18 18 20 Blood Pressure 160/67 H 156/78 H Pulse Oximetry 92 92 92 10/01/19 06:00 10/01/19 08:00 Temperature 98.2 F Pulse Rate 71 71 Respiratory Rate 20 20 Blood Pressure 173/80 H Pulse Oximetry 92 92 Intake/Output Intake/Output:
[2019-10-01 14:00] VITALS: BP 151/67; PULSE 69; RESP 16; TEMP 36.4; O2SAT 90
[2019-10-01] MEDS: OLANZapine 10 MG INJ VIAL 5 MG IM (16:16)
[2019-10-01] MEDS: WATER, STERILE FOR INJECTION 10 ML VIAL XX (16:20)
[2019-10-01] MEDS: ATORVASTATIN 40 MG TABLET PO (21:12)
[2019-10-01] MEDS: DONEPEZIL HCL 10 MG TABLET PO (21:12)
[2019-10-01] MEDS: QUEtiapine FUMARATE 100 MG TABLET PO (21:13)
[2019-10-01 22:00] VITALS: BP 155/79; PULSE 66; RESP 18; TEMP 36.8; O2SAT 97
[2019-10-02] MEDS: LACTATED RINGERS 1,000 ML 125 ML IV CONT ×2 (04:24→13:46)
[2019-10-02 06:00] VITALS: BP 103/74; PULSE 81; RESP 18; TEMP 36.6; O2SAT 96
[2019-10-02 06:27] LABS: Hematocrit 32.9 % (42.0-52.0); Hemoglobin 10.9 g/dL (14.0-18.0); Mean Corpuscular HGB Conc 33.1 g/dl (32-36); Mean Corpuscular Hemoglobin 32.8 pg (26-34); Mean Corpuscular Volume 99.1 fl (80-100); Mean Platelet Volume 10.7 fl (7.4-10.4); Platelet Count Result 232 k/mm3 (150-375); Red Blood Count 3.32 M/mm3 (4.6-6.20); Red Cell Distribution Width 13.3 % (11.5-14.5); White Blood Count 8.8 K/mm3 (4.5-10.0)
[2019-10-02] MEDS: LEVOTHYROXINE SODIUM 100 MCG TABLET PO (06:37)
[2019-10-02] MEDS: BRIMONIDINE TARTRATE 0.15% 5 ML OPHTH SOLN 1 DROP EACH EYE ×3 (06:38→21:20)
[2019-10-02 06:41] LABS: Anion Gap 9.7 mmol/L (7-16); Blood Urea Nitrogen 15 mg/dL (9-20); Calcium 8.5 mg/dL (8.4-10.2); Carbon Dioxide 27 mmol/L (22-30); Chloride 107 mmol/L (98-107); Estimated CRCL calculation 54 ml/min; Estimated Glomerular Filt Rate > 60; Glucose 158 mg/dL (75-110); Potassium 3.7 mmol/L (3.4-5.0); Sodium 140 mmol/L (137-145)
[2019-10-02 07:40] VITALS: PULSE 81; RESP 18; O2SAT 96
[2019-10-02] MEDS: metFORMIN HCL 500 MG TABLET PO ×2 (08:59→16:37)
[2019-10-02] MEDS: MEMANTINE 10 MG TABLET PO ×2 (08:59→21:19)
[2019-10-02] MEDS: LATANOPROST 0.005% OP SOLN 2.5 ML BTL 1 DROP EACH EYE (08:59)
[2019-10-02] MEDS: CYANOCOBALAMIN INJ 1,000 MCG/ML VIAL 1000 MCG IM (08:59)
[2019-10-02] MEDS: busPIRone HCL 5 MG TABLET 15 MG PO ×2 (09:00→21:20)
[2019-10-02] MEDS: PANTOPRAZOLE 40 MG TABLET PO (09:00)
[2019-10-02] MEDS: FLUoxetine HCL 20 MG CAPSULE PO (09:00)
--- NOTE | 2019-10-02 12:07 | PCOTNOTE ---
10:10 - Attempted to see patient this AM. Patient asleep upon entry and required physical touch to be aroused. When asked if patient would like to participate in OT session, patient reports of feeling too tired stating, I just want to lay down . Patient refused therapy session at this time, will attempt to see patient again this PM.
--- NOTE | 2019-10-02 13:39 | PCOTNOTE ---
13:33 - Attempted to see patient for a second time this PM. Patient was asleep upon entry and required physical touch to be aroused. When asked if patient would like to participate in OT session, patient fell back asleep and was unable to respond. RN present in room and reports that patient received narcotic medication last night and early this morning, explaining the increased drowsiness. Patient did not complete OT session this date.
[2019-10-02 14:00] VITALS: BP 150/74; PULSE 63; RESP 16; TEMP 36.7; O2SAT 91
--- NOTE | 2019-10-02 14:04 | PM.IMPN ---
Progress Note: A&P Assessment and Plan (1) FELICITAS (acute kidney injury): Code(s): N17.9 - Acute kidney failure, unspecified Status: Acute Assessment and Plan: Pt needs fluid hydration creat is 2.5. Missing ER note, pt does not appear to have admissions here in the past Pt is from [facility] Requested Nurse to enter pts medical and surgical history in the notes And pts medication list 10/02/19 14:04 patient 83-year-old male with resident nursing was sent to emergency department with fever being tired and fatigue unfortunately patient is unable to provide any history review of symptom and there are no ER documentation available, chest x-ray showed pneumonia patient with fever most likely community-acquired pneumonia being treated with Rocephin azithromycin, patient still complains cough shortness of breath, repeat x-ray on 09/27 showed bilateral infiltrate, will connect continue present management, repeat checks x-ray showed improvement in pneumonia and patient is clinically improving, however today patient complains of chills he does not have a fever, blood culture is growing Acinetobacter lwoffii and coagulase-negative Staph, MRSA will consult Dr. Littlejohn for further recommendation (2) Fever: Code(s): R50.9 - Fever, unspecified Status: Acute Assessment and Plan: Ongoing fever and tachycardiac pt is septic will order BC, UA is negative, CXR shows Pneumonia (3) Pneumonia: Code(s): J18.9 - Pneumonia, unspecified organism Status: Acute Assessment and Plan: From Chest xray, WCC high, Pt had fevers ? CAP treat with IV rocephin and IV zithromax Subjective Date/time seen: 10/02/19 14:04 patient 83-year-old male with resident nursing was sent to emergency department with fever being tired and fatigue unfortunately patient is unable to provide any history review of symptom and there are no ER documentation available, chest x-ray showed pneumonia patient with fever most likely community-acquired pneumonia being treated with Rocephin azithromycin, patient still complains cough shortness of breath, repeat x-ray on 09/27 showed bilateral infiltrate, will connect continue present management, repeat checks x-ray showed improvement in pneumonia and patient is clinically improving, however today patient complains of chills he does not have a fever, blood culture is growing Acinetobacter lwoffii and coagulase-negative Staph, MRSA will consult Dr. Littlejohn for further recommendation Review of Systems Review of Systems: All systems reviewed & are unremarkable except as noted in HPI and below Exam Narrative: Exam Narrative: elderly frail Const: General: no acute distress and uncomfortable HENMT: General nose exam: Normal nares present Mouth: Yes moist mucous membranes Eyes: Sclera: sclerae normal Neck: Neck: supple Resp: Other: bilateral fair air entry with rhonchi Cardio: Rate: regular rate Rhythm: regular rhythm GI: Auscultation: normal bowel sounds Skin: General skin exam: normal color Neuro: Speech: normal speech Sensory Exam: normal sensation Extrem: General: normal to inspection Psych: Affect: Anxious affect present Objective Data Vital Signs Vital Signs: Vital Signs - 24 hr 10/01/19 22:00 10/02/19 06:00 10/02/19 07:40 Temperature 98.2 F 97.9 F Pulse Rate 66 81 81 Respiratory Rate 18 18 18 Blood Pressure 155/79 H 103/74 Pulse Oximetry 97 96 96 Intake/Output Intake/Output: Intake & Output 09/29/19 09/30/19 10/01/19 10/02/19 23:59 23:59 23:59 23:59 Intake Total 4580 5130 2900 2000 Output Total 1525 1500 200 Balance 4580 3605 1400 1800 Meds/Results Medications: Active Medications Generic Name Dose Route Start Last Admin Trade Name Freq PRN Reason Stop Dose Admin Acetaminophen 325 mg 09/27/19 15:41 09/30/19 15:52 Tylenol Tablet PO 325 mg Q6H PRN Administration pain 1-3 Hydrocodone Bitart/Aceta
--- NOTE | 2019-10-02 14:43 | PCPTNOTE ---
The PT treatment was unable to be completed today. Patient sleeping and unable to remain awake to participate. Will continue per Plan of Care frequency and duration.
--- NOTE | 2019-10-02 15:03 | WPDINFPN2 ---
Progress Note: A&P Assessment and Plan (1) Pneumonia: Code(s): J18.9 - Pneumonia, unspecified organism Status: Acute Assessment and Plan: Acinetobacter HCAP REC Imipenem # 1 / 7 days Subjective Date/time seen: 10/02/19 15:03 Objective Data Vital Signs Vital Signs: Vital Signs - 24 hr 10/01/19 22:00 10/02/19 06:00 10/02/19 07:40 Temperature 36.8 C 36.6 C Pulse Rate 66 81 81 Respiratory Rate 18 18 18 Blood Pressure 155/79 H 103/74 Pulse Oximetry 97 96 96 10/02/19 14:00 Temperature 36.7 C Pulse Rate 63 Respiratory Rate 16 Blood Pressure 150/74 H Pulse Oximetry 91 Intake/Output Intake/Output: Intake & Output 09/29/19 09/30/19 10/01/19 10/02/19 23:59 23:59 23:59 23:59 Intake Total 4580 5130 2900 2000 Output Total 1525 1500 200 Balance 4580 3605 1400 1800 Meds/Results Medications: Active Medications Generic Name Dose Route Start Last Admin Trade Name Freq PRN Reason Stop Dose Admin Acetaminophen 325 mg 09/27/19 15:41 09/30/19 15:52 Tylenol Tablet PO 325 mg Q6H PRN Administration pain 1-3 Hydrocodone Bitart/Acetaminophen 1 tab 09/27/19 15:41 10/02/19 04:25 [place] 10-325 Mg PO 1 tab Q6H PRN Administration Pain 4-10 Atorvastatin Calcium 40 mg 09/27/19 21:00 10/01/19 21:12 Lipitor PO 40 mg HS ADILSON Administration Brimonidine Tartrate 1 drop 09/27/19 22:00 10/02/19 14:45 Alphagan P 0.15% Ophth EACH EYE 1 drop Q8HR ADILSON Administration Budesonide/Formoterol Fumarate 2 puff 09/27/19 20:00 10/02/19 08:30 Symbicort 160-4.5 Mcg (*Sp) Inhaler INHALATION 2 puff Q12HRT ADILSON Administration Buspirone HCl 15 mg 09/27/19 21:00 10/02/19 09:00 Buspar PO 15 mg Q12HR ADILSON Administration Cyanocobalamin 1,000 mcg 09/28/19 09:00 10/02/19 08:59 Vitamin B-12 Inj IM 1,000 mcg DAILY ADILSON Administration Diltiazem HCl 120 mg 09/28/19 09:00 10/02/19 09:00 Cardizem Cd PO 120 mg DAILY ADILSON Administration Donepezil HCl 10 mg 09/27/19 21:00 10/01/19 21:12 Aricept PO 10 mg HS ADILSON Administration Fluoxetine HCl 20 mg 09/28/19 09:00 10/02/19 09:00 Prozac PO 20 mg DAILY ADILSON Administration Lactated Ringer's 1,000 mls @ 125 mls/hr 09/27/19 03:25 10/02/19 13:46 Lr - Lactated Ringers Iv IV CONT 125 mls/hr .Q8H ADILSON Administration Latanoprost 1 drop 09/28/19 09:00 10/02/19 08:59 Xalatan EACH EYE 1 drop DAILY ADILSON Administration Levothyroxine Sodium 100 mcg 09/28/19 06:30 10/02/19 06:37 Synthroid PO 100 mcg DAILY@0630 ADILSON Administration Memantine 10 mg 09/27/19 21:00 10/02/19 08:59 Namenda PO 10 mg Q12HR ADILSON Administration Metformin HCl 500 mg 09/28/19 08:00 10/02/19 08:59 Glucophage PO 500 mg BIDWM ADILSON Administration Nitroglycerin 0.4 mg 09/27/19 15:41 Nitrostat Subl 0.4 Mg (1/150) SUBLINGUAL PRN PRN Angina Pantoprazole Sodium 40 mg 09/28/19 09:00 10/02/19 09:00 Protonix PO 40 mg QAM ADILSON Administration Quetiapine Fumarate 100 mg 09/27/19 21:00 10/01/19 21:13 Seroquel PO 100 mg HS ADILSON Administration Radiology Results: ITS Impressions Head CT 09/27/19 10:01 IMPRESSION: 1. No acute intracranial abnormality. 2. Age related findings. Chest X-Ray 10/01/19 10:19 IMPRESSION: Bilateral lower lung infiltrate and/atelectasis, greater on the right, improved on the left and in the right apical area since 09/28/2019 Hip/Pelvis X-Ray 10/01/19 10:23 IMPRESSION: 1. Mild osteoarthritis of the hips. Labs Labs: Laboratory Results - last 24 hr 10/02/19 10/02/19 05:59 05:59 WBC 8.8 RBC 3.32 L Hgb 10.9 L Hct 32.9 L MCV 99.1 MCH 32.8 MCHC 33.1 RDW 13.3 Plt Count 232 MPV 10.7 H Sodium 140 Potassium 3.7 Chloride 107 Carbon Dioxide 27 Anion Gap 9.7 BUN 15 Creatinine 1.00 Estim Creat Clear Calc 54 Estimated GFR > 60 Glucose 1
[2019-10-02 15:04] LABS: SARS-CoV-2 RNA PCR Negative
--- NOTE | 2019-10-02 15:32 | CONS_ITS ---
DATE OF CONSULTATION: 10/02/2019 REASON FOR CONSULTATION: Bacteremia with Acinetobacter. HISTORY OF PRESENT ILLNESS: The patient is an 83-year-old male, who cannot provide any history due to dementia. He is a resident in a fci and was brought to the hospital on September 26 with fever into the 38.0 range along with decreased level of interaction. Here, he was found to have right lower lobe infiltrate, he is being given ceftriaxone and azithromycin. Blood culture positive and consultation requested. No events here in the hospital. He has no apparent prosthetic devices in place by examination and no previous encounters at this hospital since October 2018 in the emergency room. He has not required any surgical procedures while here. PRESENT MEDICATIONS: No systemic immunosuppressants. HABITS: Presumably no tobacco nor alcohol to excess. FAMILY HISTORY: Not available. ALLERGIES: NONE KNOWN. PAST MEDICAL HISTORY: Chart indicates psychosis, diabetes mellitus, hypothyroidism, CAD, hyperlipidemia. SOCIAL HISTORY: No family at the bedside and retired. REVIEW OF SYSTEMS: 14-point review attempted, not obtainable from the patient due to decreased level of consciousness and dementia. PHYSICAL EXAMINATION: GENERAL: This is an elderly male, appears his actual age. No acute distress. VITAL SIGNS: T-max 5 days ago 37.7, afebrile for the past 3 days, 150/74, 63, 16, 91%. SKIN: No rashes. Warm and dry. Pale. EENT: The conjunctivae are normal. He will not cooperate for oral exam, but brief inspection is normal. NECK: No meningismus or mass. LUNGS: Clear to auscultation. CARDIAC: Regular rate and rhythm. No murmurs or gallops. CHEST: No indwelling vascular devices. ABDOMEN: Morbidly obese, nontender, nondistended. No masses. EXTREMITIES: No clubbing, cyanosis, or edema. LABORATORY DATA: Blood cultures 1 of 2 sets coagulase-negative Staph and Acinetobacter. I reviewed the susceptibilities. His white count originally 12.4, then 14.6 the following day, now 8.8, hemoglobin 10.9, platelets are 232. Blood gases 7.36, 36, 71, 94% on 2 L. Chemistry panel today is normal other than glucose 158, similar to previous values. AST 80, ALT 30, CRP 3.1. Urinalysis 1+ protein, otherwise normal. His COVID assay was nonreactive. RADIOLOGY: I personally reviewed his chest x-ray. He has minimal right lower lobe infiltrate cleared on repeat 09/30 largely. ASSESSMENT: 1. Acinetobacter bacteremia, suspect respiratory source with healthcare-associated pneumonia. This is less likely a skin contaminant. He has no prosthetic devices in place. They also may serve as a nidus. 2. Leukocytosis and fever due to the above, resolved. 3. Coagulase-negative Staph bacteremia suspect contaminant. 4. Dementia. RECOMMENDATIONS: 1. Imipenem for a 7-day course, once daily ertapenem would also be an option if he is discharged to his fci in the meantime. 2. Supportive care underway. Thank you very much for asking me to see him. NEDA OH M.D. CATALYST CONCENTRATION OPERATOR CATALYST CONCENTRATION OPERATOR D I MT: Cande
[2019-10-02] MEDS: DONEPEZIL HCL 10 MG TABLET PO (21:20)
[2019-10-02] MEDS: QUEtiapine FUMARATE 100 MG TABLET PO (21:20)
[2019-10-02] MEDS: ATORVASTATIN 40 MG TABLET PO (21:20)
[2019-10-02 22:00] VITALS: BP 187/83; PULSE 63; RESP 20; TEMP 36.6; O2SAT 91
[2019-10-03] MEDS: LACTATED RINGERS 1,000 ML 125 ML IV CONT ×3 (00:36→19:28)
[2019-10-03 06:00] VITALS: BP 162/63; PULSE 66; RESP 20; TEMP 36.6; O2SAT 92
[2019-10-03] MEDS: BRIMONIDINE TARTRATE 0.15% 5 ML OPHTH SOLN 1 DROP EACH EYE ×3 (06:00→21:11)
[2019-10-03] MEDS: LEVOTHYROXINE SODIUM 100 MCG TABLET PO (06:00)
[2019-10-03 06:31] LABS: Hematocrit 34.5 % (42.0-52.0); Hemoglobin 11.6 g/dL (14.0-18.0); Mean Corpuscular HGB Conc 33.6 g/dl (32-36); Mean Corpuscular Hemoglobin 33.1 pg (26-34); Mean Corpuscular Volume 98.6 fl (80-100); Mean Platelet Volume 10.5 fl (7.4-10.4); Platelet Count Result 243 k/mm3 (150-375); Red Cell Distribution Width 13.1 % (11.5-14.5); White Blood Count 10.8 K/mm3 (4.5-10.0)
[2019-10-03 06:50] LABS: Anion Gap 10.5 mmol/L (7-16); Blood Urea Nitrogen 15 mg/dL (9-20); Calcium 8.8 mg/dL (8.4-10.2); Carbon Dioxide 27 mmol/L (22-30); Chloride 104 mmol/L (98-107); Estimated CRCL calculation 60 ml/min; Estimated Glomerular Filt Rate > 60; Glucose 162 mg/dL (75-110); Potassium 3.5 mmol/L (3.4-5.0); Sodium 138 mmol/L (137-145)
[2019-10-03] MEDS: MEMANTINE 10 MG TABLET PO ×2 (09:51→21:11)
[2019-10-03] MEDS: PANTOPRAZOLE 40 MG TABLET PO (09:51)
[2019-10-03] MEDS: busPIRone HCL 5 MG TABLET 15 MG PO ×2 (09:51→21:11)
[2019-10-03] MEDS: FLUoxetine HCL 20 MG CAPSULE PO (09:51)
[2019-10-03] MEDS: CYANOCOBALAMIN INJ 1,000 MCG/ML VIAL 1000 MCG IM (09:52)
[2019-10-03] MEDS: LATANOPROST 0.005% OP SOLN 2.5 ML BTL 1 DROP EACH EYE (09:52)
[2019-10-03] MEDS: metFORMIN HCL 500 MG TABLET PO ×2 (09:52→17:29)
[2019-10-03] MEDS: POTASSIUM CHLORIDE 20 MEQ TABLET 40 MEQ PO (09:52)
[2019-10-03 14:00] VITALS: BP 171/60; PULSE 67; RESP 18; TEMP 36.6; O2SAT 93
[2019-10-03] MEDS: VANCOMYCIN ORAL 125 MG/2.5 ML SYRUP PO (17:29)
[2019-10-03] MEDS: DONEPEZIL HCL 10 MG TABLET PO (21:11)
[2019-10-03] MEDS: QUEtiapine FUMARATE 100 MG TABLET PO (21:11)
[2019-10-03] MEDS: ATORVASTATIN 40 MG TABLET PO (21:11)
[2019-10-03 22:00] VITALS: BP 158/68; PULSE 65; RESP 20; TEMP 36.4; O2SAT 92
[2019-10-04] MEDS: VANCOMYCIN ORAL 125 MG/2.5 ML SYRUP PO ×4 (00:21→18:07)
[2019-10-04] MEDS: LACTATED RINGERS 1,000 ML 125 ML IV CONT ×2 (04:52→17:02)
[2019-10-04 06:00] VITALS: BP 169/71; PULSE 60; RESP 16; TEMP 37; O2SAT 94
[2019-10-04] MEDS: BRIMONIDINE TARTRATE 0.15% 5 ML OPHTH SOLN 1 DROP EACH EYE ×3 (06:11→21:30)
[2019-10-04 06:40] LABS: Hematocrit 31.7 % (42.0-52.0); Hemoglobin 10.5 g/dL (14.0-18.0); Mean Corpuscular HGB Conc 33.1 g/dl (32-36); Mean Corpuscular Hemoglobin 32.5 pg (26-34); Mean Corpuscular Volume 98.1 fl (80-100); Mean Platelet Volume 10.6 fl (7.4-10.4); Platelet Count Result 265 k/mm3 (150-375); Red Blood Count 3.23 M/mm3 (4.6-6.20)
[2019-10-04] MEDS: LEVOTHYROXINE SODIUM 100 MCG TABLET PO (06:40)
[2019-10-04 06:55] LABS: Anion Gap 9.9 mmol/L (7-16); Blood Urea Nitrogen 15 mg/dL (9-20); Calcium 8.8 mg/dL (8.4-10.2); Carbon Dioxide 27 mmol/L (22-30); Chloride 105 mmol/L (98-107); Estimated CRCL calculation 54 ml/min; Estimated Glomerular Filt Rate > 60; Glucose 171 mg/dL (75-110); Potassium 3.9 mmol/L (3.4-5.0); Sodium 138 mmol/L (137-145)
[2019-10-04] MEDS: CYANOCOBALAMIN INJ 1,000 MCG/ML VIAL 1000 MCG IM (09:51)
[2019-10-04] MEDS: busPIRone HCL 5 MG TABLET 15 MG PO ×2 (09:51→21:30)
[2019-10-04] MEDS: LATANOPROST 0.005% OP SOLN 2.5 ML BTL 1 DROP EACH EYE (09:51)
[2019-10-04] MEDS: PANTOPRAZOLE 40 MG TABLET PO (09:52)
[2019-10-04] MEDS: metFORMIN HCL 500 MG TABLET PO ×2 (09:52→17:03)
[2019-10-04] MEDS: FLUoxetine HCL 20 MG CAPSULE PO (09:52)
[2019-10-04] MEDS: MEMANTINE 10 MG TABLET PO ×2 (09:52→21:30)
[2019-10-04 14:00] VITALS: BP 159/70; PULSE 74; RESP 16; TEMP 36.7; O2SAT 100
--- NOTE | 2019-10-04 14:20 | PM.IMPN ---
Progress Note: A&P Assessment and Plan (1) FELICITAS (acute kidney injury): Code(s): N17.9 - Acute kidney failure, unspecified Status: Acute Assessment and Plan: Pt needs fluid hydration creat is 2.5. Missing ER note, pt does not appear to have admissions here in the past Pt is from [facility] Requested Nurse to enter pts medical and surgical history in the notes And pts medication list 10/03/19 patient 83-year-old male with resident nursing was sent to emergency department with fever being tired and fatigue unfortunately patient is unable to provide any history review of symptom and there are no ER documentation available, chest x-ray showed pneumonia patient with fever most likely community-acquired pneumonia being treated with Rocephin azithromycin, patient still complains cough shortness of breath, repeat x-ray on 09/27 showed bilateral infiltrate, will connect continue present management, repeat checks x-ray showed improvement in pneumonia and patient is clinically improving, however on 10/01 patient complained of chills he does not have a fever, blood culture was growing Acinetobacter lwoffii and coagulase-negative Staph, MRSA patient was seen by Dr. caro started the patient on imipenem for 7 days, later in the afternoon received a call from nursing staff the patient is having several lose BM foul smelly is patient is on antibiotic high risk of C diff will start the patient on vancomycin [address] q[address] the patient on isolation precaution. (2) Fever: Code(s): R50.9 - Fever, unspecified Status: Acute Assessment and Plan: Ongoing fever and tachycardiac pt is septic will order BC, UA is negative, CXR shows Pneumonia (3) Pneumonia: Code(s): J18.9 - Pneumonia, unspecified organism Status: Acute Assessment and Plan: From Chest xray, WCC high, Pt had fevers ? CAP treat with IV rocephin and IV zithromax (4) Diarrhea: Code(s): R19.7 - Diarrhea, unspecified Status: Acute Assessment and Plan: patient is on antibiotic has a loose bowel movement foul smelling suspect patient is a C diff started the patient on vancomycin, continue to monitor Subjective Date/time seen: 10/03/19 patient 83-year-old male with resident nursing was sent to emergency department with fever being tired and fatigue unfortunately patient is unable to provide any history review of symptom and there are no ER documentation available, chest x-ray showed pneumonia patient with fever most likely community-acquired pneumonia being treated with Rocephin azithromycin, patient still complains cough shortness of breath, repeat x-ray on 09/27 showed bilateral infiltrate, will connect continue present management, repeat checks x-ray showed improvement in pneumonia and patient is clinically improving, however on 10/01 patient complained of chills he does not have a fever, blood culture was growing Acinetobacter lwoffii and coagulase-negative Staph, MRSA patient was seen by Dr. caro started the patient on imipenem for 7 days, later in the afternoon received a call from nursing staff the patient is having several lose BM foul smelly is patient is on antibiotic high risk of C diff will start the patient on vancomycin [address] q[address] the patient on isolation precaution. Review of Systems Review of Systems: All systems reviewed & are unremarkable except as noted in HPI and below Exam Narrative: Exam Narrative: elderly frail Const: General: comfortable and no acute distress HENMT: General nose exam: Normal nares present Mouth: Yes moist mucous membranes Eyes: General: appearance normal, both eyes and all related structures Sclera: sclerae normal Neck: Neck: supple Resp: Effort & Inspection: normal respiratory effort Auscultation: clear to auscultation bilaterally Cardio: Rate: regular rate Rhythm: regular rhythm GI: Auscultation: normal bowel
--- NOTE | 2019-10-04 14:36 | PM.IMPN ---
Progress Note: A&P Assessment and Plan (1) FELICITAS (acute kidney injury): Code(s): N17.9 - Acute kidney failure, unspecified Status: Acute Assessment and Plan: Pt needs fluid hydration creat is 2.5. Missing ER note, pt does not appear to have admissions here in the past Pt is from [facility] Requested Nurse to enter pts medical and surgical history in the notes And pts medication list 10/04/19 14:36 patient 83-year-old male with resident nursing was sent to emergency department with fever being tired and fatigue unfortunately patient is unable to provide any history review of symptom and there are no ER documentation available, chest x-ray showed pneumonia patient with fever most likely community-acquired pneumonia being treated with Rocephin azithromycin, patient still complains cough shortness of breath, repeat x-ray on 09/27 showed bilateral infiltrate, will connect continue present management, repeat checks x-ray showed improvement in pneumonia and patient is clinically improving, however on 10/01 patient complained of chills he does not have a fever, blood culture was growing Acinetobacter lwoffii and coagulase-negative Staph, MRSA patient was seen by Dr. acro started the patient on imipenem for 3/7 days, on 10/02 later in the afternoon received a call from nursing staff the patient is having several lose BM foul smelly patient is on antibiotic high risk of C diff will start the patient on vancomycin [address] the patient on isolation precaution. today patient stats feeling better had 2 loose BM, denies any fever, chills or shortness of breath. (2) Fever: Code(s): R50.9 - Fever, unspecified Status: Acute Assessment and Plan: Ongoing fever and tachycardiac pt is septic will order BC, UA is negative, CXR shows Pneumonia (3) Pneumonia: Code(s): J18.9 - Pneumonia, unspecified organism Status: Acute Assessment and Plan: From Chest xray, WCC high, Pt had fevers ? CAP treat with IV rocephin and IV zithromax (4) Diarrhea: Code(s): R19.7 - Diarrhea, unspecified Status: Acute Assessment and Plan: patient is on antibiotic has a loose bowel movement foul smelling suspect patient is a C diff started the patient on vancomycin, continue to monitor Subjective Date/time seen: 10/04/19 14:36 patient 83-year-old male with resident nursing was sent to emergency department with fever being tired and fatigue unfortunately patient is unable to provide any history review of symptom and there are no ER documentation available, chest x-ray showed pneumonia patient with fever most likely community-acquired pneumonia being treated with Rocephin azithromycin, patient still complains cough shortness of breath, repeat x-ray on 09/27 showed bilateral infiltrate, will connect continue present management, repeat checks x-ray showed improvement in pneumonia and patient is clinically improving, however on 10/01 patient complained of chills he does not have a fever, blood culture was growing Acinetobacter lwoffii and coagulase-negative Staph, MRSA patient was seen by Dr. caro started the patient on imipenem for 3/7 days, on 10/02 later in the afternoon received a call from nursing staff the patient is having several lose BM foul smelly patient is on antibiotic high risk of C diff will start the patient on vancomycin [address] the patient on isolation precaution. today patient stats feeling better had 2 loose BM, denies any fever, chills or shortness of breath. Review of Systems Review of Systems: All systems reviewed & are unremarkable except as noted in HPI and below Exam Const: General: comfortable and no acute distress HENMT: General nose exam: Normal nares present Mouth: Yes moist mucous membranes Eyes: General: appearance normal, both eyes and all related structures Sclera: sclerae normal Neck: Neck: supple Resp: Eff
[2019-10-04 21:24] VITALS: BP 165/86; PULSE 71; RESP 20; TEMP 37.1; O2SAT 93
[2019-10-04] MEDS: QUEtiapine FUMARATE 100 MG TABLET PO (21:30)
[2019-10-04] MEDS: ATORVASTATIN 40 MG TABLET PO (21:30)
[2019-10-04] MEDS: DONEPEZIL HCL 10 MG TABLET PO (21:30)
[2019-10-05] MEDS: VANCOMYCIN ORAL 125 MG/2.5 ML SYRUP PO ×5 (00:15→23:34)
[2019-10-05] MEDS: LACTATED RINGERS 1,000 ML 125 ML IV CONT ×3 (01:55→22:08)
[2019-10-05 06:00] VITALS: BP 151/59; PULSE 63; RESP 20; TEMP 37; O2SAT 90
[2019-10-05] MEDS: BRIMONIDINE TARTRATE 0.15% 5 ML OPHTH SOLN 1 DROP EACH EYE ×3 (06:03→21:45)
[2019-10-05] MEDS: LEVOTHYROXINE SODIUM 100 MCG TABLET PO (06:03)
[2019-10-05 06:34] LABS: Hematocrit 32.2 % (42.0-52.0); Hemoglobin 10.7 g/dL (14.0-18.0); Mean Corpuscular HGB Conc 33.2 g/dl (32-36); Mean Corpuscular Hemoglobin 32.9 pg (26-34); Mean Corpuscular Volume 99.1 fl (80-100); Mean Platelet Volume 10.1 fl (7.4-10.4); Platelet Count Result 275 k/mm3 (150-375); Red Blood Count 3.25 M/mm3 (4.6-6.20); Red Cell Distribution Width 13.2 % (11.5-14.5); White Blood Count 11.5 K/mm3 (4.5-10.0)
[2019-10-05 07:05] LABS: Anion Gap 10.9 mmol/L (7-16); Blood Urea Nitrogen 17 mg/dL (9-20); Calcium 8.7 mg/dL (8.4-10.2); Carbon Dioxide 27 mmol/L (22-30); Chloride 102 mmol/L (98-107); Estimated CRCL calculation 67 ml/min; Estimated Glomerular Filt Rate > 60; Glucose 149 mg/dL (75-110); Potassium 3.9 mmol/L (3.4-5.0); Sodium 136 mmol/L (137-145)
--- NOTE | 2019-10-05 08:02 | WPDINFPN2 ---
Progress Note: A&P Assessment and Plan (1) Pneumonia: Code(s): J18.9 - Pneumonia, unspecified organism Status: Acute Assessment and Plan: 1. Acinetobacter HCAP 2. Chronic memory loss 3. Antibiotic associated diarrhea, possible C diff 4. CNSS bacteremia, contaminant 5. Mild leukocytosis REC Imipenem # 4 / 7 days. Need C diff assay, on Vanc #3 in meantime. Subjective Date/time seen: 10/05/19 08:02 Interval history: non verbal, no events Exam Narrative: Exam Narrative: afebrile Const: General: no acute distress Resp: Effort & Inspection: normal respiratory effort Auscultation: clear to auscultation bilaterally Cardio: Rate: regular rate Rhythm: regular rhythm Heart sounds: no gallops, no murmurs and no rubs GI: Inspection: non-distended GI Palp: Yes Soft to palpation, No Tenderness to palpation present (GI) and No Guarding due to palpation present (GI) Objective Data Vital Signs Vital Signs: Vital Signs - 24 hr 10/04/19 14:00 10/04/19 21:24 10/05/19 06:00 Temperature 36.7 C 37.1 C 37.0 C Pulse Rate 74 71 63 Respiratory Rate 16 20 20 Blood Pressure 159/70 H 165/86 H 151/59 H Pulse Oximetry 100 93 90 Intake/Output Intake/Output: Intake & Output 10/02/19 10/03/19 10/04/19 10/05/19 23:59 23:59 23:59 23:59 Intake Total 3600 3180 3600 1150 Output Total 072 150 7128 200 Balance 3000 2980 2450 950 Meds/Results Medications: Active Medications Generic Name Dose Route Start Last Admin Trade Name Freq PRN Reason Stop Dose Admin Acetaminophen 325 mg 09/27/19 15:41 09/30/19 15:52 Tylenol Tablet PO 325 mg Q6H PRN Administration pain 1-3 Hydrocodone Bitart/Acetaminophen 1 tab 09/27/19 15:41 10/04/19 18:38 [employer] 10-325 Mg PO 1 tab Q6H PRN Administration Pain 4-10 Albuterol 2.5 mg 10/03/19 11:05 Albuterol Sulf Neb 2.5mg/0.5ml INHALATION Q6HRT PRN Shortness Of Breath Atorvastatin Calcium 40 mg 09/27/19 21:00 10/04/19 21:30 Lipitor PO 40 mg HS ADILSON Administration Brimonidine Tartrate 1 drop 09/27/19 22:00 10/05/19 06:03 Alphagan P 0.15% Ophth EACH EYE 1 drop Q8HR ADILSON Administration Budesonide/Formoterol Fumarate 2 puff 09/27/19 20:00 10/04/19 20:59 Symbicort 160-4.5 Mcg (*Sp) Inhaler INHALATION 2 puff Q12HRT ADILSON Administration Buspirone HCl 15 mg 09/27/19 21:00 10/04/19 21:30 Buspar PO 15 mg Q12HR ADILSON Administration Cyanocobalamin 1,000 mcg 09/28/19 09:00 10/04/19 09:51 Vitamin B-12 Inj IM 1,000 mcg DAILY ADILSON Administration Diltiazem HCl 120 mg 09/28/19 09:00 10/04/19 09:51 Cardizem Cd PO 120 mg DAILY ADILSON Administration Donepezil HCl 10 mg 09/27/19 21:00 10/04/19 21:30 Aricept PO 10 mg HS ADILSON Administration Fluoxetine HCl 20 mg 09/28/19 09:00 10/04/19 09:52 Prozac PO 20 mg DAILY ADILSON Administration Lactated Ringer's 1,000 mls @ 125 mls/hr 09/27/19 03:25 10/05/19 01:55 Lr - Lactated Ringers Iv IV CONT 125 mls/hr .Q8H ADILSON Administration Imipenem/Cilastatin Sodium 500 mg in 100 mls @ 300 mls/hr 10/02/19 16:00 10/05/19 04:18 Primaxin 500 Mg/D5w 100 Ml IVPB 10/09/19 16:01 Infused Q6H ADILSON Infusion Ipratropium [place] 0.5 mg 10/03/19 11:07 Atrovent Neb INHALATION Q6HRT PRN Shortness Of Breath Latanoprost 1 drop 09/28/19 09:00 10/04/19 09:51 Xalatan EACH EYE 1 drop DAILY ADILSON Administration Levothyroxine Sodium 100 mcg 09/28/19 06:30 10/05/19 06:03 Synthroid PO 100 mcg DAILY@0630 ADILSON Administration Memantine 10 mg 09/27/19 21:00 10/04/19 21:30 Namenda PO 10 mg Q12HR ADILSON Administration Metformin HCl 500 mg 09/28/19 08:00 10/04/19 17:03 Glucophage PO 500 mg BIDWM ADILSON Administration Nitroglycerin 0.4 mg 09/27/19 15:41 Nitrostat Subl 0.4 Mg (1/150) SUBLINGUAL PRN PRN Angina Pantoprazole Sodium 40 mg 09/28/19 09:00 10/04/19 09:52 Protonix PO 4
[2019-10-05] MEDS: MEMANTINE 10 MG TABLET PO ×2 (09:32→21:45)
[2019-10-05] MEDS: busPIRone HCL 5 MG TABLET 15 MG PO ×2 (09:32→21:45)
[2019-10-05] MEDS: PANTOPRAZOLE 40 MG TABLET PO (09:33)
[2019-10-05] MEDS: metFORMIN HCL 500 MG TABLET PO ×2 (09:33→17:00)
[2019-10-05] MEDS: CYANOCOBALAMIN INJ 1,000 MCG/ML VIAL 1000 MCG IM (09:33)
[2019-10-05] MEDS: FLUoxetine HCL 20 MG CAPSULE PO (09:33)
[2019-10-05] MEDS: LATANOPROST 0.005% OP SOLN 2.5 ML BTL 1 DROP EACH EYE (10:48)
[2019-10-05 14:00] VITALS: BP 130/61; PULSE 74; RESP 16; TEMP 36.7; O2SAT 93
--- NOTE | 2019-10-05 14:16 | PM.IMPN ---
Progress Note: A&P Assessment and Plan (1) FELICITAS (acute kidney injury): Code(s): N17.9 - Acute kidney failure, unspecified Status: Acute Assessment and Plan: Pt needs fluid hydration creat is 2.5. Missing ER note, pt does not appear to have admissions here in the past Pt is from [facility] Requested Nurse to enter pts medical and surgical history in the notes And pts medication list 10/05/19 14:16 patient 83-year-old male with resident nursing was sent to emergency department with fever being tired and fatigue unfortunately patient is unable to provide any history review of symptom and there are no ER documentation available, chest x-ray showed pneumonia patient with fever most likely community-acquired pneumonia being treated with Rocephin azithromycin, patient still complains cough shortness of breath, repeat x-ray on 09/27 showed bilateral infiltrate, will connect continue present management, repeat checks x-ray showed improvement in pneumonia and patient is clinically improving, however on 10/01 patient complained of chills he does not have a fever, blood culture was growing Acinetobacter lwoffii and coagulase-negative Staph, MRSA patient was seen by Dr. caro started the patient on imipenem for 4/7 days, on 10/02 later in the afternoon received a call from nursing staff the patient is having several lose BM foul smelly patient is on antibiotic high risk of C diff will start the patient on vancomycin [address] the patient on isolation precaution. today patient stats feeling better had 2 loose BM, denies any fever, chills or shortness of breath, Repeat chest x-ray today shows improvement will continue present management and finish antibiotic course, will continue PT OT. (2) Fever: Code(s): R50.9 - Fever, unspecified Status: Acute Assessment and Plan: Ongoing fever and tachycardiac pt is septic will order BC, UA is negative, CXR shows Pneumonia (3) Pneumonia: Code(s): J18.9 - Pneumonia, unspecified organism Status: Acute Assessment and Plan: From Chest xray, WCC high, Pt had fevers ? CAP treat with IV rocephin and IV zithromax (4) Diarrhea: Code(s): R19.7 - Diarrhea, unspecified Status: Acute Assessment and Plan: patient is on antibiotic has a loose bowel movement foul smelling suspect patient is a C diff started the patient on vancomycin, continue to monitor Subjective Date/time seen: 10/05/19 14:16 patient 83-year-old male with resident nursing was sent to emergency department with fever being tired and fatigue unfortunately patient is unable to provide any history review of symptom and there are no ER documentation available, chest x-ray showed pneumonia patient with fever most likely community-acquired pneumonia being treated with Rocephin azithromycin, patient still complains cough shortness of breath, repeat x-ray on 09/27 showed bilateral infiltrate, will connect continue present management, repeat checks x-ray showed improvement in pneumonia and patient is clinically improving, however on 10/01 patient complained of chills he does not have a fever, blood culture was growing Acinetobacter lwoffii and coagulase-negative Staph, MRSA patient was seen by Dr. caro started the patient on imipenem for 4/7 days, on 10/02 later in the afternoon received a call from nursing staff the patient is having several lose BM foul smelly patient is on antibiotic high risk of C diff will start the patient on vancomycin [address] the patient on isolation precaution. today patient stats feeling better had 2 loose BM, denies any fever, chills or shortness of breath, Repeat chest x-ray today shows improvement will continue present management and finish antibiotic course, will continue PT OT. Review of Systems Review of Systems: ROS unobtainable: Yes unobtainable due to medical condition Exam Const: General: comfor
[2019-10-05 20:37] VITALS: PULSE 80; RESP 18
[2019-10-05] MEDS: ATORVASTATIN 40 MG TABLET PO (21:45)
[2019-10-05] MEDS: QUEtiapine FUMARATE 100 MG TABLET PO (21:45)
[2019-10-05] MEDS: DONEPEZIL HCL 10 MG TABLET PO (21:45)
[2019-10-05 22:00] VITALS: BP 163/74; PULSE 67; RESP 20; TEMP 36.8; O2SAT 91
[2019-10-06] MEDS: LEVOTHYROXINE SODIUM 100 MCG TABLET PO (05:47)
[2019-10-06] MEDS: BRIMONIDINE TARTRATE 0.15% 5 ML OPHTH SOLN 1 DROP EACH EYE ×3 (05:47→21:57)
[2019-10-06] MEDS: VANCOMYCIN ORAL 125 MG/2.5 ML SYRUP PO (05:47)
[2019-10-06] MEDS: LACTATED RINGERS 1,000 ML 125 ML IV CONT ×3 (05:48→23:36)
[2019-10-06 06:00] VITALS: BP 173/63; PULSE 66; RESP 18; TEMP 36.7; O2SAT 100
[2019-10-06 06:19] LABS: Hematocrit 31.4 % (42.0-52.0); Hemoglobin 10.4 g/dL (14.0-18.0); Mean Corpuscular HGB Conc 33.1 g/dl (32-36); Mean Corpuscular Hemoglobin 32.5 pg (26-34); Mean Corpuscular Volume 98.1 fl (80-100); Mean Platelet Volume 9.8 fl (7.4-10.4); Platelet Count Result 290 k/mm3 (150-375); Red Cell Distribution Width 13.1 % (11.5-14.5); White Blood Count 11.1 K/mm3 (4.5-10.0)
[2019-10-06 06:48] LABS: Anion Gap 11.6 mmol/L (7-16); Blood Urea Nitrogen 15 mg/dL (9-20); Calcium 8.7 mg/dL (8.4-10.2); Carbon Dioxide 28 mmol/L (22-30); Chloride 103 mmol/L (98-107); Estimated CRCL calculation 60 ml/min; Estimated Glomerular Filt Rate > 60; Glucose 134 mg/dL (75-110); Potassium 3.6 mmol/L (3.4-5.0); Sodium 139 mmol/L (137-145)
[2019-10-06] MEDS: busPIRone HCL 5 MG TABLET 15 MG PO ×2 (09:55→21:56)
[2019-10-06] MEDS: metFORMIN HCL 500 MG TABLET PO ×2 (09:55→17:58)
[2019-10-06] MEDS: CYANOCOBALAMIN INJ 1,000 MCG/ML VIAL 1000 MCG IM (09:56)
[2019-10-06] MEDS: FLUoxetine HCL 20 MG CAPSULE PO (09:56)
[2019-10-06] MEDS: LATANOPROST 0.005% OP SOLN 2.5 ML BTL 1 DROP EACH EYE (10:00)
[2019-10-06] MEDS: MEMANTINE 10 MG TABLET PO ×2 (10:00→21:56)
[2019-10-06] MEDS: PANTOPRAZOLE 40 MG TABLET PO (10:00)
--- NOTE | 2019-10-06 11:12 | PCDIET ---
Nutrition LOS Screen Complete: Pt current nutrition is Heart Healthy Diet Nutrition recommendation: Agree + Banatrol TID Last recorded weight is 87.7 kg. Bowel Motility: Liquid stool, CDiff Pending Labs Reviewed:Glucose 134 Meds Noted:B12, Metformin, Synthroid, Vancomycin Additional Notes: Seeing pt today for LOS. His appetite is good and intakes range from 80-100%. Pt with cdiff pending. We discussed banatrol today for bulking stools and aiding in microbiome health. Pt willing to try. We will send on trays TID. We will continue to monitor BMs every five days.
--- NOTE | 2019-10-06 13:22 | WPDINFPN2 ---
Progress Note: A&P Assessment and Plan (1) Pneumonia: Code(s): J18.9 - Pneumonia, unspecified organism Status: Acute Assessment and Plan: 1. Acinetobacter HCAP 2. Chronic memory loss 3. Antibiotic associated diarrhea, no C diff infection 4. CNSS bacteremia, contaminant 5. Mild leukocytosis REC Imipenem # 5 / 7 days. Stop Vanc, use loperamide. Subjective Date/time seen: 10/06/19 13:22 Interval history: no complaints Exam Narrative: Exam Narrative: afebrile Const: General: no acute distress Resp: Effort & Inspection: normal respiratory effort Auscultation: clear to auscultation bilaterally Cardio: Rate: regular rate Rhythm: regular rhythm GI: Inspection: non-distended GI Palp: Yes Soft to palpation and No Tenderness to palpation present (GI) Objective Data Vital Signs Vital Signs: Vital Signs - 24 hr 10/05/19 14:00 10/05/19 20:37 10/05/19 22:00 Temperature 36.7 C 36.8 C Pulse Rate 74 80 67 Respiratory Rate 16 18 20 Blood Pressure 130/61 163/74 H Pulse Oximetry 93 91 10/06/19 06:00 Temperature 36.7 C Pulse Rate 66 Respiratory Rate 18 Blood Pressure 173/63 H Pulse Oximetry 100 Intake/Output Intake/Output: Intake & Output 10/03/19 10/04/19 10/05/19 10/06/19 23:59 23:59 23:59 23:59 Intake Total 3180 3600 4260 1740 Output Total 200 1150 1050 700 Balance 2980 2450 3210 1040 Meds/Results Medications: Active Medications Generic Name Dose Route Start Last Admin Trade Name Freq PRN Reason Stop Dose Admin Acetaminophen 325 mg 09/27/19 15:41 09/30/19 15:52 Tylenol Tablet PO 325 mg Q6H PRN Administration pain 1-3 Hydrocodone Bitart/Acetaminophen 1 tab 09/27/19 15:41 10/04/19 18:38 [place] 10-325 Mg PO 1 tab Q6H PRN Administration Pain 4-10 Albuterol 2.5 mg 10/03/19 11:05 Albuterol Sulf Neb 2.5mg/0.5ml INHALATION Q6HRT PRN Shortness Of Breath Atorvastatin Calcium 40 mg 09/27/19 21:00 10/05/19 21:45 Lipitor PO 40 mg HS ADILSON Administration Brimonidine Tartrate 1 drop 09/27/19 22:00 10/06/19 05:47 Alphagan P 0.15% Ophth EACH EYE 1 drop Q8HR ADILSON Administration Budesonide/Formoterol Fumarate 2 puff 09/27/19 20:00 10/05/19 20:36 Symbicort 160-4.5 Mcg (*Sp) Inhaler INHALATION 2 puff Q12HRT ADILSON Administration Buspirone HCl 15 mg 09/27/19 21:00 10/06/19 09:55 Buspar PO 15 mg Q12HR ADILSON Administration Cyanocobalamin 1,000 mcg 09/28/19 09:00 10/06/19 09:56 Vitamin B-12 Inj IM 1,000 mcg DAILY ADILSON Administration Diltiazem HCl 120 mg 09/28/19 09:00 10/06/19 09:56 Cardizem Cd PO 120 mg DAILY ADILSON Administration Donepezil HCl 10 mg 09/27/19 21:00 10/05/19 21:45 Aricept PO 10 mg HS ADILSON Administration Fluoxetine HCl 20 mg 09/28/19 09:00 10/06/19 09:56 Prozac PO 20 mg DAILY ADILSON Administration Lactated Ringer's 1,000 mls @ 125 mls/hr 09/27/19 03:25 10/06/19 05:48 Lr - Lactated Ringers Iv IV CONT 125 mls/hr .Q8H ADILSON Administration Imipenem/Cilastatin Sodium 500 mg in 100 mls @ 300 mls/hr 10/02/19 16:00 10/06/19 10:24 Primaxin 500 Mg/D5w 100 Ml IVPB 10/09/19 16:01 Infused Q6H ADILSON Infusion Ipratropium [place] 0.5 mg 10/03/19 11:07 Atrovent Neb INHALATION Q6HRT PRN Shortness Of Breath Latanoprost 1 drop 09/28/19 09:00 10/06/19 10:00 Xalatan EACH EYE 1 drop DAILY ADILSON Administration Levothyroxine Sodium 100 mcg 09/28/19 06:30 10/06/19 05:47 Synthroid PO 100 mcg DAILY@0630 ADILSON Administration Loperamide HCl 2 mg 10/06/19 13:22 Loperamide Hcl PO PRN PRN Diarrhea Memantine 10 mg 09/27/19 21:00 10/06/19 10:00 Namenda PO 10 mg Q12HR ADILSON Administration Metformin HCl 500 mg 09/28/19 08:00 10/06/19 09:55 Glucophage PO 500 mg BIDWM ADILSON Administration Nitroglycerin 0.4 mg 09/27/19 15:41 Nitrostat Subl 0.4 Mg (1/150) SUBLINGUAL PRN PRN Angina
[2019-10-06 14:00] VITALS: BP 170/73; PULSE 66; RESP 18; TEMP 36.5; O2SAT 97
--- NOTE | 2019-10-06 14:38 | PM.IMPN ---
Progress Note: A&P Assessment and Plan (1) FELICITAS (acute kidney injury): Code(s): N17.9 - Acute kidney failure, unspecified Status: Acute Assessment and Plan: Pt needs fluid hydration creat is 2.5. Missing ER note, pt does not appear to have admissions here in the past Pt is from [facility] Requested Nurse to enter pts medical and surgical history in the notes And pts medication list 10/06/19 14:38 patient 83-year-old male with resident nursing was sent to emergency department with fever being tired and fatigue unfortunately patient is unable to provide any history review of symptom and there are no ER documentation available, chest x-ray showed pneumonia patient with fever most likely community-acquired pneumonia being treated with Rocephin azithromycin, patient still complains cough shortness of breath, repeat x-ray on 09/27 showed bilateral infiltrate, will connect continue present management, repeat checks x-ray showed improvement in pneumonia and patient is clinically improving, however on 10/01 patient complained of chills he does not have a fever, blood culture was growing Acinetobacter lwoffii and coagulase-negative Staph, MRSA patient was seen by Dr. caro started the patient on imipenem for 4/7 days, on 10/02 later in the afternoon received a call from nursing staff the patient is having several lose BM foul smelly patient is on antibiotic high risk of C diff will start the patient on vancomycin [address] the patient on isolation precaution. today patient stats feeling better had 2 loose BM, denies any fever, chills or shortness of breath, Repeat chest x-ray 010/04 showed improvement, patient C diff is negative, stopped Vancomycin, will continue present management and finish antibiotic course 07/15, will continue PT OT. (2) Fever: Code(s): R50.9 - Fever, unspecified Status: Acute Assessment and Plan: Ongoing fever and tachycardiac pt is septic will order BC, UA is negative, CXR shows Pneumonia (3) Pneumonia: Code(s): J18.9 - Pneumonia, unspecified organism Status: Acute Assessment and Plan: From Chest xray, WCC high, Pt had fevers ? CAP treat with IV rocephin and IV zithromax (4) Diarrhea: Code(s): R19.7 - Diarrhea, unspecified Status: Acute Assessment and Plan: patient is on antibiotic has a loose bowel movement foul smelling suspect patient is a C diff started the patient on vancomycin, continue to monitor Subjective Date/time seen: 10/06/19 14:38 patient 83-year-old male with resident nursing was sent to emergency department with fever being tired and fatigue unfortunately patient is unable to provide any history review of symptom and there are no ER documentation available, chest x-ray showed pneumonia patient with fever most likely community-acquired pneumonia being treated with Rocephin azithromycin, patient still complains cough shortness of breath, repeat x-ray on 09/27 showed bilateral infiltrate, will connect continue present management, repeat checks x-ray showed improvement in pneumonia and patient is clinically improving, however on 10/01 patient complained of chills he does not have a fever, blood culture was growing Acinetobacter lwoffii and coagulase-negative Staph, MRSA patient was seen by Dr. caro started the patient on imipenem for 4/7 days, on 10/02 later in the afternoon received a call from nursing staff the patient is having several lose BM foul smelly patient is on antibiotic high risk of C diff will start the patient on vancomycin [address] the patient on isolation precaution. today patient stats feeling better had 2 loose BM, denies any fever, chills or shortness of breath, Repeat chest x-ray 0n 10/04 showed improvement, patient C diff is negative, stopped Vancomycin, will continue present management and finish antibiotic course 07/15, will continue PT OT. Review of Systems Re
[2019-10-06 19:39] VITALS: PULSE 67; RESP 18
[2019-10-06 21:36] VITALS: BP 179/80; PULSE 69; RESP 16; TEMP 36.5; O2SAT 93
[2019-10-06] MEDS: QUEtiapine FUMARATE 100 MG TABLET PO (21:56)
[2019-10-06] MEDS: DONEPEZIL HCL 10 MG TABLET PO (21:56)
[2019-10-06] MEDS: ATORVASTATIN 40 MG TABLET PO (21:56)
[2019-10-07] MEDS: BRIMONIDINE TARTRATE 0.15% 5 ML OPHTH SOLN 1 DROP EACH EYE ×3 (05:17→21:12)
[2019-10-07] MEDS: LEVOTHYROXINE SODIUM 100 MCG TABLET PO (05:17)
[2019-10-07 06:00] VITALS: BP 154/79; PULSE 62; RESP 18; TEMP 36.2; O2SAT 90
[2019-10-07] MEDS: LACTATED RINGERS 1,000 ML 125 ML IV CONT ×3 (07:40→21:35)
[2019-10-07] MEDS: MEMANTINE 10 MG TABLET PO ×2 (07:51→21:10)
[2019-10-07] MEDS: busPIRone HCL 5 MG TABLET 15 MG PO ×2 (07:51→21:11)
[2019-10-07] MEDS: FLUoxetine HCL 20 MG CAPSULE PO (07:51)
[2019-10-07] MEDS: CYANOCOBALAMIN INJ 1,000 MCG/ML VIAL 1000 MCG IM (07:52)
[2019-10-07] MEDS: metFORMIN HCL 500 MG TABLET PO ×2 (07:52→17:13)
[2019-10-07] MEDS: LATANOPROST 0.005% OP SOLN 2.5 ML BTL 1 DROP EACH EYE (07:53)
[2019-10-07] MEDS: PANTOPRAZOLE 40 MG TABLET PO (07:53)
[2019-10-07 08:00] VITALS: PULSE 62; RESP 18; O2SAT 90
--- NOTE | 2019-10-07 12:30 | PM.IMPN ---
Progress Note: A&P Assessment and Plan (1) FELICITAS (acute kidney injury): Code(s): N17.9 - Acute kidney failure, unspecified Status: Acute Assessment and Plan: Pt needs fluid hydration creat is 2.5. Missing ER note, pt does not appear to have admissions here in the past Pt is from [facility] Requested Nurse to enter pts medical and surgical history in the notes And pts medication list 10/07/19 12:30 patient 83-year-old male with resident nursing was sent to emergency department with fever being tired and fatigue unfortunately patient is unable to provide any history review of symptom and there are no ER documentation available, chest x-ray showed pneumonia patient with fever most likely community-acquired pneumonia being treated with Rocephin azithromycin, patient still complains cough shortness of breath, repeat x-ray on 09/27 showed bilateral infiltrate, will connect continue present management, repeat checks x-ray showed improvement in pneumonia and patient is clinically improving, however on 10/01 patient complained of chills he does not have a fever, blood culture was growing Acinetobacter lwoffii and coagulase-negative Staph, MRSA patient was seen by Dr. caro started the patient on imipenem for 4/7 days, on 10/02 later in the afternoon received a call from nursing staff the patient is having several lose BM foul smelly patient is on antibiotic high risk of C diff will start the patient on vancomycin [address] the patient on isolation precaution. today patient stats feeling better had 2 loose BM, denies any fever, chills or shortness of breath, Repeat chest x-ray 010/04 showed improvement, patient C diff is negative, stopped Vancomycin, will continue present management and finish antibiotic course 08/15, will discharge the patient tomorrow, will continue PT OT. (2) Fever: Code(s): R50.9 - Fever, unspecified Status: Acute Assessment and Plan: Ongoing fever and tachycardiac pt is septic will order BC, UA is negative, CXR shows Pneumonia (3) Pneumonia: Code(s): J18.9 - Pneumonia, unspecified organism Status: Acute Assessment and Plan: From Chest xray, WCC high, Pt had fevers ? CAP treat with IV rocephin and IV zithromax (4) Diarrhea: Code(s): R19.7 - Diarrhea, unspecified Status: Acute Assessment and Plan: patient is on antibiotic has a loose bowel movement foul smelling suspect patient is a C diff started the patient on vancomycin, continue to monitor Subjective Date/time seen: 10/07/19 12:30 patient 83-year-old male with resident nursing was sent to emergency department with fever being tired and fatigue unfortunately patient is unable to provide any history review of symptom and there are no ER documentation available, chest x-ray showed pneumonia patient with fever most likely community-acquired pneumonia being treated with Rocephin azithromycin, patient still complains cough shortness of breath, repeat x-ray on 09/27 showed bilateral infiltrate, will connect continue present management, repeat checks x-ray showed improvement in pneumonia and patient is clinically improving, however on 10/01 patient complained of chills he does not have a fever, blood culture was growing Acinetobacter lwoffii and coagulase-negative Staph, MRSA patient was seen by Dr. caro started the patient on imipenem for 4/7 days, on 10/02 later in the afternoon received a call from nursing staff the patient is having several lose BM foul smelly patient is on antibiotic high risk of C diff will start the patient on vancomycin [address] the patient on isolation precaution. today patient stats feeling better had 2 loose BM, denies any fever, chills or shortness of breath, Repeat chest x-ray 0n 10/04 showed improvement, patient C diff is negative, stopped Vancomycin, will continue present management and finish antibiotic course 08/15, will d
--- NOTE | 2019-10-07 12:43 | PCOTNOTE ---
Unable to complete OT treatment this date. Patient declines all bathing due to c/o too cold and declines all UE strengthening and transfers due to c/o too tired. Will continue per plan of care.
[2019-10-07 14:00] VITALS: BP 175/69; PULSE 64; RESP 16; TEMP 36.7; O2SAT 90
--- NOTE | 2019-10-07 16:34 | WPDINFPN2 ---
Progress Note: A&P Assessment and Plan (1) Pneumonia: Code(s): J18.9 - Pneumonia, unspecified organism Status: Acute Assessment and Plan: 1. Acinetobacter HCAP, CXR improving 2. Chronic memory loss 3. Antibiotic associated diarrhea, no C diff infection 4. CNSS bacteremia, contaminant 5. Mild leukocytosis REC Imipenem # 6 / 7 days. No oral followup. Will sign off. Subjective Date/time seen: 10/07/19 16:34 Interval history: up to BR with assist Exam Narrative: Exam Narrative: afebrile Const: General: no acute distress Resp: Effort & Inspection: normal respiratory effort Auscultation: clear to auscultation bilaterally Objective Data Vital Signs Vital Signs: Vital Signs - 24 hr 10/06/19 19:39 10/06/19 21:36 10/07/19 06:00 Temperature 36.5 C 36.2 C L Pulse Rate 67 69 62 Respiratory Rate 18 16 18 Blood Pressure 179/80 H 154/79 H Pulse Oximetry 93 90 10/07/19 08:00 10/07/19 14:00 Temperature 36.7 C Pulse Rate 62 64 Respiratory Rate 18 16 Blood Pressure 175/69 H Pulse Oximetry 90 90 Intake/Output Intake/Output: Intake & Output 10/04/19 10/05/19 10/06/19 10/07/19 23:59 23:59 23:59 23:59 Intake Total 3600 4260 4600 1910 Output Total 1150 1050 900 650 Balance 2450 3210 3700 1260 Meds/Results Medications: Active Medications Generic Name Dose Route Start Last Admin Trade Name Freq PRN Reason Stop Dose Admin Acetaminophen 325 mg 09/27/19 15:41 09/30/19 15:52 Tylenol Tablet PO 325 mg Q6H PRN Administration pain 1-3 Albuterol 2.5 mg 10/03/19 11:05 Albuterol Sulf Neb 2.5mg/0.5ml INHALATION Q6HRT PRN Shortness Of Breath Atorvastatin Calcium 40 mg 09/27/19 21:00 10/06/19 21:56 Lipitor PO 40 mg HS ADILSON Administration Brimonidine Tartrate 1 drop 09/27/19 22:00 10/07/19 15:10 Alphagan P 0.15% Ophth EACH EYE 1 drop Q8HR ADILSON Administration Budesonide/Formoterol Fumarate 2 puff 07/19/20 20:00 10/07/19 08:14 Symbicort 160-4.5 Mcg (*Sp) Inhaler INHALATION 2 puff Q12HRT ADILSON Administration Buspirone HCl 15 mg 09/27/19 21:00 10/07/19 07:51 Buspar PO 15 mg Q12HR ADILSON Administration Cyanocobalamin 1,000 mcg 09/28/19 09:00 10/07/19 07:52 Vitamin B-12 Inj IM 1,000 mcg DAILY ADILSON Administration Diltiazem HCl 120 mg 09/28/19 09:00 10/07/19 07:52 Cardizem Cd PO 120 mg DAILY ADILSON Administration Donepezil HCl 10 mg 09/27/19 21:00 10/06/19 21:56 Aricept PO 10 mg HS ADILSON Administration Fluoxetine HCl 20 mg 09/28/19 09:00 10/07/19 07:51 Prozac PO 20 mg DAILY ADILSON Administration Lactated Ringer's 1,000 mls @ 125 mls/hr 09/27/19 03:25 10/07/19 07:40 Lr - Lactated Ringers Iv IV CONT 125 mls/hr .Q8H ADILSON Administration Imipenem/Cilastatin Sodium 500 mg in 100 mls @ 300 mls/hr 10/02/19 16:00 10/07/19 10:25 Primaxin 500 Mg/D5w 100 Ml IVPB 10/09/19 16:01 Infused Q6H ADILSNO Infusion Ipratropium Aspen 0.5 mg 10/03/19 11:07 Atrovent Neb INHALATION Q6HRT PRN Shortness Of Breath Latanoprost 1 drop 09/28/19 09:00 10/07/19 07:53 Xalatan EACH EYE 1 drop DAILY ADILSON Administration Levothyroxine Sodium 100 mcg 09/28/19 06:30 10/07/19 05:17 Synthroid PO 100 mcg DAILY@0630 ADILSON Administration Loperamide HCl 2 mg 10/06/19 13:22 Loperamide Hcl PO PRN PRN Diarrhea Memantine 10 mg 09/27/19 21:00 10/07/19 07:51 Namenda PO 10 mg Q12HR ADILSON Administration Metformin HCl 500 mg 09/28/19 08:00 10/07/19 07:52 Glucophage PO 500 mg BIDWM ADILSON Administration Nitroglycerin 0.4 mg 09/27/19 15:41 Nitrostat Subl 0.4 Mg (1/150) SUBLINGUAL PRN PRN Angina Pantoprazole Sodium 40 mg 09/28/19 09:00 10/07/19 07:53 Protonix PO 40 mg QAM ADILSON Administration Quetiapine Fumarate 100 mg 09/27/19 21:00 10/06/19 21:56 Seroquel PO 100 mg HS ADILSON Administration Radiology Results:
[2019-10-07 20:00] VITALS: PULSE 64; RESP 16; O2SAT 90
[2019-10-07] MEDS: DONEPEZIL HCL 10 MG TABLET PO (21:11)
[2019-10-07] MEDS: ATORVASTATIN 40 MG TABLET PO (21:11)
[2019-10-07] MEDS: QUEtiapine FUMARATE 100 MG TABLET PO (21:12)
[2019-10-07 22:00] VITALS: BP 192/65; PULSE 65; RESP 16; TEMP 36.9; O2SAT 91
[2019-10-08 01:00] VITALS: BP 158/80
[2019-10-08 06:00] VITALS: BP 174/68; PULSE 60; RESP 18; TEMP 37; O2SAT 91
[2019-10-08] MEDS: hydrALAZINE HCL 20 MG/ML VIAL 5 MG IV PUSH (06:00)
[2019-10-08 08:00] VITALS: PULSE 60; RESP 18; O2SAT 91
[2019-10-08] MEDS: metFORMIN HCL 500 MG TABLET PO ×2 (09:52→18:40)
[2019-10-08] MEDS: busPIRone HCL 5 MG TABLET 15 MG PO ×2 (09:53→20:05)
[2019-10-08] MEDS: LEVOTHYROXINE SODIUM 100 MCG TABLET PO (09:54)
[2019-10-08] MEDS: PANTOPRAZOLE 40 MG TABLET PO (09:54)
[2019-10-08] MEDS: CYANOCOBALAMIN INJ 1,000 MCG/ML VIAL 1000 MCG IM (09:55)
[2019-10-08] MEDS: MEMANTINE 10 MG TABLET PO ×2 (09:56→20:05)
[2019-10-08] MEDS: LATANOPROST 0.005% OP SOLN 2.5 ML BTL 1 DROP EACH EYE (09:56)
[2019-10-08] MEDS: FLUoxetine HCL 20 MG CAPSULE PO (09:56)
[2019-10-08 10:59] LABS: SARS-CoV-2 RNA PCR Negative
--- NOTE | 2019-10-08 12:23 | PM.DS ---
DS: Admitting Diagnosis Admitting Diagnosis Admitting Diagnosis: Acute kidney failure, unspecified DS: Discharge Diagnosis Discharge Diagnosis (1) FELICITAS (acute kidney injury): Code(s): N17.9 - Acute kidney failure, unspecified Status: Acute Assessment and Plan: Pt needs fluid hydration creat is 2.5. Missing ER note, pt does not appear to have admissions here in the past Pt is from [facility] Requested Nurse to enter pts medical and surgical history in the notes And pts medication list 10/07/19 12:30 patient 83-year-old male with resident nursing was sent to emergency department with fever being tired and fatigue unfortunately patient is unable to provide any history review of symptom and there are no ER documentation available, chest x-ray showed pneumonia patient with fever most likely community-acquired pneumonia being treated with Rocephin azithromycin, patient still complains cough shortness of breath, repeat x-ray on 09/27 showed bilateral infiltrate, will connect continue present management, repeat checks x-ray showed improvement in pneumonia and patient is clinically improving, however on 10/01 patient complained of chills he does not have a fever, blood culture was growing Acinetobacter lwoffii and coagulase-negative Staph, MRSA patient was seen by Dr. caro started the patient on imipenem for 4/7 days, on 10/02 later in the afternoon received a call from nursing staff the patient is having several lose BM foul smelly patient is on antibiotic high risk of C diff will start the patient on vancomycin [address] q[address] the patient on isolation precaution. today patient stats feeling better had 2 loose BM, denies any fever, chills or shortness of breath, Repeat chest x-ray 0n 10/04 showed improvement, patient C diff is negative, stopped Vancomycin, will continue present management and finish antibiotic course 08/15, will discharge the patient tomorrow, will continue PT OT. (2) Fever: Code(s): R50.9 - Fever, unspecified Status: Acute Assessment and Plan: Ongoing fever and tachycardiac pt is septic will order BC, UA is negative, CXR shows Pneumonia (3) Pneumonia: Code(s): J18.9 - Pneumonia, unspecified organism Status: Acute Assessment and Plan: From Chest xray, WCC high, Pt had fevers ? CAP treat with IV rocephin and IV zithromax (4) Diarrhea: Code(s): R19.7 - Diarrhea, unspecified Status: Acute Assessment and Plan: patient is on antibiotic has a loose bowel movement foul smelling suspect patient is a C diff started the patient on vancomycin, continue to monitor DS: Summary Hospital Course Reason for hospitalization: Chief complaint: FELICITAS, generalized weakness Narrative: Kevin Gan is a 83 year old male poor historian, mild fever and weakness from [place]. Covid ruled out today. FELICITAS on admission. Pt had ct head which was negative, cxr possible pneumonia. Pt is dm, psychotic behaviour and hypothyoidism, cad, high cholesterol. I do not see a ER note. Pt still has a fever today, 37.7f, however is not able to give a good history. Tried calling [facility]- as pt is not a good historian. information given -pt is usually oriented, yesterday could not feed himself, pt had 100.1 fever for 1 days, no cough, just confused. Not been in the hospital recently. Usually well. Pt usually walks around and is active. Requested Nurse to enter pts medical and surgical history in the notes. Hospital Course: 10/07/19 12:30 patient 83-year-old male with resident nursing was sent to emergency department with fever being tired and fatigue unfortunately patient is unable to provide any history review of symptom and there are no ER documentation available, chest x-ray showed pneumonia patient with fever most likely community-acquired pneumonia being treated with Rocephin azithromycin, patient still complains cough shortness of breath, repeat x-ray on 09/27 showed carlos
[2019-10-08 14:00] VITALS: BP 158/86; PULSE 66; RESP 18; TEMP 36.9; O2SAT 93
--- NOTE | 2019-10-08 14:50 | PCOTNOTE ---
Upon arrival patient was difficult to arouse due to increased tiredness. Patient declined to participate in therapy session this date due to patient reporting to wanting to sleep and is too tired 10/08/2019.
[2019-10-08] MEDS: BRIMONIDINE TARTRATE 0.15% 5 ML OPHTH SOLN 1 DROP EACH EYE ×2 (16:13→20:06)
[2019-10-08 20:00] VITALS: PULSE 66; RESP 18; O2SAT 93
[2019-10-08] MEDS: ATORVASTATIN 40 MG TABLET PO (20:04)
[2019-10-08] MEDS: DONEPEZIL HCL 10 MG TABLET PO (20:05)
[2019-10-08] MEDS: QUEtiapine FUMARATE 100 MG TABLET PO (20:06)
== END 2019-10-08 21:35 | DRG 871 ==
LOC: ANHED 00:28 → ANH3MEDSUR 04:06
PROVIDERS: Family Medicine; Admitting Provider Family Medicine; Emergency Provider Emergency Medicine; PCP Internal Medicine; Visit Provider Family Medicine
DX: A41.59 Other Gram-negative sepsis (principal); J15.6 Pneumonia due to other Gram-negative bacteria; N17.9 Acute kidney failure, unspecified; K52.1 Toxic gastroenteritis and colitis; T36.95XA Adverse effect of unspecified systemic antibiotic, initial encounter; Z20.828 Contact with and (suspected) exposure to other viral communicable diseases; D72.829 Elevated white blood cell count, unspecified; F03.90 Unspecified dementia, unspecified severity, without behavioral disturbance, psychotic disturbance, mood disturbance, and anxiety; E03.9 Hypothyroidism, unspecified; E11.9 Type 2 diabetes mellitus without complications; I25.10 Atherosclerotic heart disease of native coronary artery without angina pectoris; E78.5 Hyperlipidemia, unspecified; F29 Unspecified psychosis not due to a substance or known physiological condition; Z87.891 Personal history of nicotine dependence
CPT/HCPCS: 36415; 36600; 51701; 70450; 71045; 71046; 73502; 80048; 80053; 81001; 82805; 83605; 84484; 85025; 85027; 85610; 85730; 86140; 87040; 87077; 87186; 87324; 87635; 93005; 94640; 96361; 96365; 96366; 96367; 96372; 97110; 97116; 97161; 97166; 97530; 97535; 99285; A9270; C9803; G0378; J0360; J0456; J0696; J0743; J3420; J7030; J7120; U0003

== ENCOUNTER 2019-12-08 02:59 | Emergency (ER) | payer MEDICARE, MEDICAID, SELFPAY ==
--- NOTE | ~2019-12-08 | XR_ITS ---
EXAMINATION: XR hip RT 2V w AP pelvis EXAM DATE: 12/08/2019 03:52 INDICATION: Initial encounter following injury, with pain of the pelvis, right hip. Fall. Initial en counter. TECHNIQUE: Right hip frontal, crosstable lateral projections for interpretation. Frontal projection p meka. Comparison is made to prior examination from 10/01/2019. FINDINGS: Smooth right hip femoral head contour, no radiographic evidence of avascular necrosis. The re are no acute pelvic, right hip fractures or dislocations identified. There is no subcutaneous gas . The soft tissue is unremarkable. There are no radiopaque foreign bodies. 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 IMPRESSION: No acute osseous findings. Reviewed, dictated and finalized at location A. IMPRESSION: No acute osseous findings.
--- NOTE | ~2019-12-08 | XR_ITS ---
EXAMINATION: XR chest 1V portable EXAM DATE: 12/08/2019 03:51 INDICATION: Fall. TECHNIQUE: Portable AP frontal chest x-ray was obtained. Comparison is made to prior examination from 10/05/2019. FINDINGS: Prominent aortic knob, possible ascending aortic aneurysm. There are cholecystectomy clips. Heart size is magnified on this AP projection. No confluent consolidation, pneumothorax or pleural e ffusion suspected. There are cholecystectomy clips. There are no osseous abnormalities identified. 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 No acute findings. Reviewed, dictated and finalized at location A.
--- NOTE | ~2019-12-08 | CT_ITS ---
EXAMINATION: CT brain wo con, CT cervical spine wo con EXAM DATE: 12/08/2019 03:36 INDICATION: Fall, posterior head injury with neck pain. Low back pain. TECHNIQUE: Spiral CT of the head was performed without contrast. Axial, coronal and sagittal images were reviewed. Spiral CT of the cervical spine was performed without contrast. Axial images were rev iewed. Coronal and sagittal reformatted images were also reviewed. The dose-length product (DLP) fo r this examination was 605.33 (accession [id number]), 458.16 (accession [id number]) mGy-cm. The exposure was tailored according to patient size, and iterative reconstruction (ASIR) was used as additional dose reduction technique. Comparison is made to prior examination from 09/27/2019. FINDINGS: HEAD CT: There is no acute intraparenchymal hemorrhage. No evidence of intraparenchymal brain mass l esion. No evidence of acute infarction. There is mild periventricular and subcortical hypodensity, n onspecific but probably related to small vessel ischemic disease. There is mild prominence of the s ulci and ventricles related to cerebral atrophy. There is intracranial carotid arteriosclerosis. There is no mass effect or midline shift. There is no obstructive hydrocephalus suspected. There are no extra-axial collections. There are no acute calvarial fractures. Patient has had right-sided oc ular lens surgery. Soft tissue is unremarkable. The visualized sinuses and mastoid air cells are we ll aerated. CERVICAL CT: Small apical scarring. Evidence of mild emphysema. There is no evidence of acute cervica l fracture. The odontoid process is intact. Pre-dens space is normal. Prevertebral soft tissue is normal. There are no soft tissue abnormalities identified. There is no disc space widening or traum atic vertebral body subluxation suspected. There is moderate disc disease C3-4, mild to moderate at C4-5. Overall mild to moderate cervical arthropathy. A detailed level by level evaluation of spondyl osis can be added as addendum if requested. IMPRESSION: 1. No acute intracranial findings or cervical fracture. 2. Age-related intracranial findings. 3. Cervical spondylosis. Reviewed, dictated and finalized at location A. IMPRESSION: 1. No acute intracranial findings or cervical fracture. 2. Age-related intracranial findings. 3. Cervical spondylosis.
--- NOTE | ~2019-12-08 | CT_ITS ---
EXAMINATION: CT lumbar spine wo patricio EXAM DATE: 12/08/2019 03:36 INDICATION: Fall, low back pain. TECHNIQUE: Spiral CT lumbar spine was performed without contrast. Axial, coronal and sagittal images of the lumbar spine were reviewed. The dose-length product (DLP) for this examination was 1339.88 mGy -cm. The exposure was tailored according to patient size (auto mA exposure control), and iterative r econstruction (ASIR) was used as additional dose reduction technique. There is no prior study for co mparison. FINDINGS: There is abdominal aortic saccular aneurysm, the bulging focal region measuring 2.2 cm with the overall diameter of the aorta at the aneurysm measuring 4.5 cm. Other regions of abdominal aorti c ectasia. Also some centrally located arteriosclerosis within the abdominal aorta above the aneurysm , possible chronic dissection flap. Findings could be better evaluated with a CT angiogram abdomen. Sacrum, sacroiliac joints, sacral arcuate lines are intact. There is no evidence of acute lumbar fra cture. There is no disc space widening or traumatic vertebral body subluxation suspected. [place] l soft tissue is unremarkable. Mild diffuse lumbar disc disease. Moderate lower lumbar, mild upper l umbar facet arthropathy. A detailed level by level evaluation of spondylosis can be added as addendum if requested. IMPRESSION: 1. No acute lumbar findings. 2. [id number] lumbar spondylosis. 3. Incidental saccular mid abdominal aortic aneurysm. 4. 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 Reviewed, dictated and finalized at location A. IMPRESSION: 1. No acute lumbar findings. 2. [id number] lumbar spondylosis. 3. Incidental saccular mid abdominal aortic aneurysm. 4. 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
[2019-12-08 02:58] VITALS: BP 187/68; PULSE 61; RESP 16; TEMP 37.2; O2SAT 95
[2019-12-08 03:45] VITALS: BP 178/87; PULSE 68; RESP 16; O2SAT 100
--- NOTE | 2019-12-08 04:12 | ED.FALL ---
HPI - Fall General Chief Complaint: Fall Stated Complaint: fall/ hip pain Source: RN notes reviewed History of Present Illness HPI Narrative: Patient presents emergency department from [facility] via EMS for a fall. Patient was found by nursing staff on the floor at [facility] patient had fallen. The patient normally walks with a cane. The patient does not recall the injury was sent in for further evaluation. Currently the patient complains of some mild pain in the right hip denies any other symptoms at this time. Patient denies chest pain shortness of breath abdominal pain Related Data Home Medications Medication Instructions Recorded Confirmed Tubersol 0.1 ml INTRADERMAL ONCE 09/27/19 09/27/19 acetaminophen 325 mg PO Q6H PRN 09/27/19 09/27/19 atorvastatin 40 mg PO HS 09/27/19 09/27/19 brimonidine 1 drp OPHTHALMIC (EYE) Q8H 09/27/19 09/27/19 budesonide-formoterol [Symbicort] 2 puff INHALATION Q12H 09/27/19 09/27/19 buspirone 15 mg PO BID 09/27/19 09/27/19 cyanocobalamin (vitamin B-12) 1,000 mcg IM DAILY 09/27/19 09/27/19 diltiazem HCl [Cardizem] 120 mg PO DAILY 09/27/19 09/27/19 donepezil 10 mg PO HS 09/27/19 09/27/19 ergocalciferol (vitamin D2) 1,250 mcg PO WEEKLY 09/27/19 09/27/19 fluoxetine 20 mg PO DAILY 09/27/19 09/27/19 hydrocodone-acetaminophen [[place]] 1 tablet PO Q6H PRN 09/27/19 09/27/19 latanoprost 0.005 % OPHTHALMIC (EYE) DAILY 09/27/19 09/27/19 levothyroxine 100 mcg PO DAILY 09/27/19 09/27/19 lisinopril 2.5 mg PO DAILY 09/27/19 09/27/19 memantine 10 mg PO BID 09/27/19 09/27/19 metformin 1,000 mg PO BID 09/27/19 09/27/19 nitroglycerin 0.4 mg SUBLINGUAL PRN PRN 09/27/19 09/27/19 omeprazole 20 mg PO DAILY 09/27/19 09/27/19 pregabalin 100 mg PO BID 09/27/19 09/27/19 quetiapine [Seroquel] 100 mg PO HS 09/27/19 09/27/19 Allergies Allergy/AdvReac Type Severity Reaction Status Date / Time No Known Allergies Allergy Unverified 10/30/18 19:38 Review of Systems Review of Systems: Narrative: Gen.: Denies fevers or chills Eyes: Denies eye pain or visual change ENT: Denies congestion Respiratory: Denies shortness of breath or cough CV: Denies chest pain or palpitations GI: Denies abdominal pain nausea, emesis or diarrhea Musculoskeletal: See HPI Neuro: Denies numbness, tingling, weakness or focal weakness Skin: Denies rash Except as documented, all other systems reviewed and negative [facility] Past Medical History Medical History (Updated 12/08/19 @ 06:13 by [place] Nicolas DO) Dementia Diabetes mellitus Social History Social History Smoking status: Former smoker Alcohol intake: never Substance use: never Gender identity (if verbalized by the patient): Male Spiritual care concerns: No Exam Narrative: Exam Narrative: APPEARANCE: No acute distress, nontoxic, resting in bed EYES: EOMI, Tonya HEENT: Normocephalic, atraumatic, OMM Neck: C-collar present, no midline tenderness palpation RESPIRATORY: No respiratory distress Clear to auscultation bilaterally with no rhonchi wheezing or rales. CARDIOVASCULAR: Regular rate and rhythm without murmurs rubs or gallops. ABDOMINAL: Soft, nontender, nondistended, no rebound or guarding MUSCULOSKELETAl: Moves all extremities. No clubbing, cyanosis or edema. Tender palpation of the right lateral hip no swelling or ecchymosis full range of motion of the hip without pain, no tenderness of the right knee or ankle, dorsalis pedis pulse 2+, no tenderness of the bilateral upper extremities left lower extremity full range of motion Back: No midline thoracic lumbar tenderness palpation tender palpation bilateral paravertebral muscles L3-5 NEURO: Awake and alertx 2. Following commands, speech normal, no focal deficits SKIN:: Warm, dry. No rashes lesions or abrasions PSYCHIATRIC: Normal affect/mood, Course Course Emergency Course: Patient able to stand at bed with no pain Discussed with patient results of workup and diagnosis. Di
[2019-12-08 05:21] VITALS: BP 182/90; PULSE 72; RESP 20; O2SAT 100
--- NOTE | 2019-12-08 05:21 | PC.NURSE ---
Patient beginning to become combative and act belligerent towards staff. EDP [place] notified at this time.
[2019-12-08 05:57] LABS: Basophils Absolute Auto 0.1 K/mm3 (0.0-0.1); Basophils Percent Auto 1.3 % (0.2-1.2); Eosinophils Absolute Auto 0.3 K/mm3 (0-0.3); Eosinophils Percent Auto 3.5 % (0-4.4); Hematocrit 38.3 % (42.0-52.0); Hemoglobin 12.8 g/dL (14.0-18.0); Immature Granulocyte Absolute 0.15 K/mm3 (0.00-0.031); Immature Granulocyte Percent A 1.8 % (0-0.5); Lymphocytes Absolute Auto 2.34 K/mm3 (0.9-3.2); Lymphocytes Percent Auto 28.3 % (18.3-44.2); Mean Corpuscular HGB Conc 33.4 g/dl (32-36); Mean Corpuscular Hemoglobin 33.8 pg (26-34); Mean Corpuscular Volume 101.1 fl (80-100); Mean Platelet Volume 10.8 fl (7.4-10.4); Monocytes Absolute Auto 0.9 K/mm3 (0.1-0.6); Monocytes Percent Auto 10.6 % (2.6-8.5); Neutrophils Absolute Auto 4.5 K/mm3 (1.3-6.7); Neutrophils Percent Auto 54.5 % (45.5-73.1); Platelet Count Result 204 k/mm3 (150-375); Red Blood Count 3.79 M/mm3 (4.6-6.20); Red Cell Distribution Width 13.9 % (11.5-14.5); White Blood Count 8.3 K/mm3 (4.5-10.0)
[2019-12-08 06:02] LABS: Add Urine Microscopic? NO; Appearance Urine Clear (Clear); Bilirubin Urine Negative (Negative); Blood Urine Negative (Negative); Color Urine Yellow (Yellow); Glucose Urine UA Negative (Negative); Ketones Urine Negative (Negative); Leukocyte Esterase Ur Negative LEU/UL (Negative); Mucus Urine Rare /lpf; Nitrate Urine Negative (Negative); Protein Urine Negative (Negative); Specific Grav Ur 1.028 (1.001-1.035); Squamous Epithelial Cell Urine Rare /hpf (Few); Urobilinogen Urine Negative mg/dL (<2.0); WBC Urine 0-3 /hpf
[2019-12-08 06:07] LABS: INR 1.2; Partial Thromboplastin Time 28.3 SECONDS (22.3-36.8); Prothrombin Time 14.6 Seconds (11.1-14.7)
[2019-12-08 06:15] LABS: Alanine Aminotransferase 14 U/L (4-50); Albumin Level 4.4 g/dL (3.5-5.1); Alkaline Phosphatase 70 U/L (38-126); Anion Gap 9 mmol/L (8-16); Aspartate Amino Transferase 19 U/L (17-59); Bilirubin,Total 0.6 mg/dL (0.2-1.3); Blood Urea Nitrogen 33 mg/dL (9-20); Calcium 9.3 mg/dL (8.4-10.2); Carbon Dioxide 24 mmol/L (22-30); Chloride 111 mmol/L (98-107); Estimated Glomerular Filt Rate > 60; Glucose 155 mg/dL (75-110); Potassium 4.2 mmol/L (3.4-5.0); Sodium 144 mmol/L (137-145)
--- NOTE | 2019-12-08 06:39 | PC.NURSE ---
Report given to Josie at [facility].
[2019-12-08 07:01] VITALS: BP 170/87; PULSE 85; RESP 14; O2SAT 93
--- NOTE | 2019-12-08 09:07 | PC.NURSE ---
updated ambulance ETA: [id number]
[2019-12-08 10:22] VITALS: BP 174/92; PULSE 67; RESP 18; O2SAT 94
[2019-12-08 11:45] VITALS: BP 170/83; PULSE 74; RESP 18; O2SAT 99
== END 2019-12-08 11:47 ==
PROVIDERS: Emergency Provider Emergency Medicine; PCP Internal Medicine
DX: F03.90 Unspecified dementia, unspecified severity, without behavioral disturbance, psychotic disturbance, mood disturbance, and anxiety (principal); E11.9 Type 2 diabetes mellitus without complications; Z79.84 Long term (current) use of oral hypoglycemic drugs; Z87.891 Personal history of nicotine dependence; S70.01XA Contusion of right hip, initial encounter; W19.XXXA Unspecified fall, initial encounter
CPT/HCPCS: 36415; 51701; 70450; 71045; 72125; 72131; 73502; 80053; 81003; 85025; 85610; 85730; 99284

== ENCOUNTER 2020-01-25 16:18 | Outpatient (CLI) | payer MEDICARE, MEDICAID, SELFPAY ==
--- NOTE | ~2020-01-25 | MR_ITS ---
EXAMINATION: MR lumbar spine wo con DATE: 01/25/2020 17:13 INDICATION: Lumbar spondylosis TECHNIQUE: Magnetic resonance imaging (MRI) of the lumbar spine was performed without intravenous con trast. Sequences included sagittal T2-weighted FSE, sagittal T2-weighted FS FSE, sagittal T1-weighted FSE, and axial T2-weighted FSE. COMPARISON: None FINDINGS: Unchanged 1-2 mm retrolisthesis L2 on L3. Vertebral body heights are normal. Normal marrow signal. D isc desiccation with mild disc height loss at L1-L2 and without significant disc height loss at L2-L3 and L3-L4. The conus medullaris terminates at L1. Partially visualized T2 hyperintense left renal cy st. There is normal signal in the caudal spinal cord. Ectatic infrarenal abdominal aorta with left-si ded saccular aneurysm. The aorta at this level measures 3.4 x 4.6 cm. Paravertebral soft tissues are otherwise unremarkable. The following disc levels are specifically discussed: T12-L1: Disc is mildly bulging. There is mild bilateral facet joint osteoarthritis. There is no neura l foraminal stenosis. There is minimal central canal stenosis. L1-L2: Disc is bulging. There is mild to moderate bilateral facet joint osteoarthritis. There is mild bilateral neural foraminal stenosis. There is mild central canal stenosis. L2-L3: Disc is bulging. There is moderate right and mild to moderate left facet joint osteoarthritis. There is moderate bilateral neural foraminal stenosis. There is mild central canal stenosis. L3-L4: Bilateral foraminal zone disc protrusions. There is moderate right and mild to moderate left f acet joint osteoarthritis. There is moderate bilateral neural foraminal stenosis. There is minimal ce ntral canal stenosis. L4-L5: Mild bilateral foraminal zone disc protrusions. There is mild to moderate left and moderate to severe right facet joint osteoarthritis. There is moderate right and mild to moderate left neural fo raminal stenosis. There is no central canal stenosis. L5-S1: The disc does not extend beyond the endplate margin. There is moderate right and mild to moder ate left facet joint osteoarthritis. There is mild right neural foraminal stenosis. There is no centr al canal stenosis. IMPRESSION: 1. Mild to moderate lumbar spondylosis. 2. Saccular aneurysm along the left side of the ectatic infrarenal aorta together measuring 3.4 x 4.6 cm Reviewed, dictated and finalized at location H. ROL ROOM OPERATOR IMPRESSION: 1. Mild to moderate lumbar spondylosis. 2. Saccular aneurysm along the left side of the ectatic infrarenal aorta togeth er measuring 3.4 x 4.6 cm
== END 2020-01-25 16:19 | disposition home or self-care (01) ==
PROVIDERS: PCP Internal Medicine; Visit Provider Internal Medicine
DX: M47.896 Other spondylosis, lumbar region (principal)
CPT/HCPCS: 72148

== ENCOUNTER 2020-02-12 20:16 | Inpatient (IN) | payer MEDICARE, MEDICAID, SELFPAY ==
--- NOTE | ~2020-02-12 | CT_ITS ---
EXAMINATION: CT chest wo con DATE: 02/12/2020 23:05 INDICATION: cough TECHNIQUE: Computed tomography (CT) of the chest was performed without intravenous contrast. Addition al 3D reconstructions utilizing coronal maximum intensity projection (MIP) were performed. Automated exposure control and iterative reconstruction technique were employed. The dose-length product was 55 8.83 mGy-cm. COMPARISON: None FINDINGS: There are multiple small centrilobular nodules and tree-in-bud pattern in the posterolateral aspect o f the right upper lobe and posterolateral right middle lobe consistent with endobronchial spread of d isease. More dense consolidation with mucous plugging in the posterior basilar right lower lobe. Calc ified pleural plaque at the posterior medial left lower lobe. Small calcified left lower lobe nodule consistent with old granulomatous disease. No pleural effusion. Heart size is normal. Atherosclerotic coronary artery calcific calcification is an aortic valve calcification. Atherosclerotic thoracic ao rta is normal in caliber. No pathologically enlarged thoracic lymphadenopathy. There is an approximat tacho 3.0 x 1.5 cm left paraspinal mass which is of near fluid density which appears to arise from the left T9-T10 neural foramen. Common bile duct is dilated to 12 mm which is within normal limits post c holecystectomy. Mild thoracic spondylosis. IMPRESSION: 1. Consolidation in the right lower lobe and tree-in-bud opacities in the right upper and middle lobe s consistent with pneumonia. Given the distribution this could also be related to aspiration. 2. 3.0 x 1.5 cm near fluid density left paraspinal mass which appears to arise from the left T9-T10 n eural foramen. 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 Consider pre and postcontrast thoracic spine MRI for further evaluation. Reviewed, dictated and finalized at location A. S [employer] IMPRESSION: 1. Consolidation in the right lower lobe and tree-in-bud opacities in the right upper and middle lobes consistent with pneumonia. Given the distribution this could also be related to aspiration. 2. 3.0 x 1.5 cm near fluid density left paraspinal mass which appears to arise from the left T9-T10 neural foramen. Given the attenuation would favor nerve ro ot sheath cyst over schwannoma or peripheral nerve sheath tumor. Consider pre a nd postcontrast thoracic spine MRI for further evaluation.
--- NOTE | ~2020-02-12 | MR_ITS ---
EXAMINATION: MR thoracic spine wo/w con DATE: 02/15/2020 13:57 INDICATION: Left paraspinal mass. TECHNIQUE: Magnetic resonance imaging (MRI) of the thoracic spine was performed without and with 17 m L MultiHance intravenous contrast. Sequences included sagittal and axial T2-weighted FSE, sagittal ST IR FSE, and sagittal and axial T1-weighted FSE. Postcontrast sequences included sagittal and axial T1 -weighted FS FSE. COMPARISON: Chest CT 02/27 FINDINGS: Motion artifact is noted. There are dependent airspace opacities in right lower lobe, consi stent with pneumonia. There is 3 degrees dextrocurvature of thoracic spine. There is mild chronic ant erior wedging of T5 vertebral body. There is mildly decreased disc height at multiple levels. There i s moderately decreased disc height at T8-T9. The discs do not extend beyond the endplate margins. The re is multilevel facet joint osteoarthritis. There is multilevel mild neural foraminal stenosis bilat erally. The spinal cord signal intensity is normal. On the left at T9-T10, there is a 17 mm paraspina l cyst that is contiguous with the nerve root sleeve, consistent with a lateral meningocele. There is no remodeling of the bone. No enhancement to suggest a peripheral nerve sheath tumor. IMPRESSION: 1. 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 2. Right lower lobe pneumonia. 3. Moderate thoracic spondylosis. Reviewed, dictated and finalized at location B. T [employer] IMPRESSION: 1. 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 2. Right lower lobe pneumonia. 3. Moderate thoracic spondylosis.
--- NOTE | ~2020-02-12 | CT_ITS ---
EXAMINATION: CT brain wo con DATE: 02/12/2020 23:10 INDICATION: Cough and altered mental status TECHNIQUE: Computed tomography (CT) of the head was performed without intravenous contrast. Sagittal and coronal reconstructions were performed. The mA was adjusted according to patient size. Iterative reconstruction technique was employed. The dose-length product was 605.33 mGy-cm. COMPARISON: head CT dated 12/08/2019 FINDINGS: No acute intracranial hemorrhage, acute infarction or abnormal extra axial fluid collection. There is mild scattered white matter hypoattenuation consistent with chronic small vessel ischemic disease. S ymmetric prominence of the sulci consistent with mild age-appropriate diffuse cerebral volume loss. V entricles are normal and symmetric. No mass/mass effect. Changes of right intraocular lens replacemen t. The orbits and paranasal sinuses are normal. Unchanged small left mastoid effusion. Intracranial c alcified cerebral atherosclerosis is noted. IMPRESSION: 1. No acute intracranial process. 2. Age-related changes including mild diffuse volume loss and mild scattered white matter hypoattenua tion consistent with chronic small vessel ischemic disease. Reviewed, dictated and finalized at location A. [employer] IMPRESSION: 1. No acute intracranial process. 2. Age-related changes including mild diffuse volume loss and mild scattered wh ite matter hypoattenuation consistent with chronic small vessel ischemic diseas e.
[2020-02-12 20:15] VITALS: PULSE 75; RESP 20; TEMP 37.2; O2SAT 96
--- NOTE | 2020-02-12 20:24 | ECG_ITS ---
Measurements Intervals [place] Rate: 75 P: 7 SC: 181 QRS: 4 QRSD: 94 T: 78 QT: 381 QTc: 427 Interpretive Statements SINUS RHYTHM EARLY PRECORDIAL R/S TRANSITION BORDERLINE T WAVE ABNORMALITY- HIGH LATERAL LEADS BASELINE WANDER- I, II, AVR, AVF, V1-V6 BORDERLINE ECG Electronically Signed On 02-13-2020 7:34:29 COUNTERPERSON by Jagjit Cheung D.O.
[2020-02-12 20:46] LABS: Basophils Absolute Auto 0.2 K/mm3 (0.0-0.1); Eosinophils Absolute Auto 0.2 K/mm3 (0-0.3); Hematocrit 43.1 % (42.0-52.0); Hemoglobin 14.5 g/dL (14.0-18.0); Immature Granulocyte Absolute 0.17 K/mm3 (0.00-0.031); Mean Corpuscular HGB Conc 33.6 g/dl (32-36); Mean Corpuscular Volume 100.9 fl (80-100); Mean Platelet Volume 11.1 fl (7.4-10.4); Monocytes Absolute Auto 1.3 K/mm3 (0.1-0.6); Monocytes Percent Auto 7.7 % (2.6-8.5); Neutrophils Absolute Auto 13.4 K/mm3 (1.3-6.7); Neutrophils Percent Auto 79.3 % (45.5-73.1); Platelet Count Result 255 k/mm3 (150-375); Red Blood Count 4.27 M/mm3 (4.6-6.20); Red Cell Distribution Width 13.8 % (11.5-14.5)
--- NOTE | 2020-02-12 20:52 | ED.AMS ---
HPI - Altered Mental Status General Chief Complaint: Altered Mental Status Stated Complaint: low 02 sats Time Seen by Provider: 02/12/20 20:28 Source: patient Mode of arrival: ambulatory Limitations: no limitations History of Present Illness HPI narrative: Patient is an 84-year-old male [facility] after being more lethargic than usual. According to jail staff his oxygen saturation was an 84-88 percentile on room air. Patient denies any headache, chest pain, shortness of breath, abdominal pain, nausea, vomiting, diarrhea. Patient is a poor historian MD complaint: altered mental status Related Data Home Medications Medication Instructions Recorded Confirmed Tubersol 0.1 ml INTRADERMAL ONCE 09/27/19 09/27/19 acetaminophen 325 mg PO Q6H PRN 09/27/19 09/27/19 atorvastatin 40 mg PO HS 09/27/19 09/27/19 brimonidine 1 drp OPHTHALMIC (EYE) Q8H 09/27/19 09/27/19 budesonide-formoterol [Symbicort] 2 puff INHALATION Q12H 09/27/19 09/27/19 buspirone 15 mg PO BID 09/27/19 09/27/19 cyanocobalamin (vitamin B-12) 1,000 mcg IM DAILY 09/27/19 09/27/19 diltiazem HCl [Cardizem] 120 mg PO DAILY 09/27/19 09/27/19 ergocalciferol (vitamin D2) 1,250 mcg PO WEEKLY 09/27/19 09/27/19 fluoxetine 20 mg PO DAILY 09/27/19 09/27/19 latanoprost 0.005 % OPHTHALMIC (EYE) DAILY 09/27/19 09/27/19 levothyroxine 100 mcg PO DAILY 09/27/19 09/27/19 lisinopril 2.5 mg PO DAILY 09/27/19 09/27/19 memantine 10 mg PO BID 09/27/19 09/27/19 metformin 1,000 mg PO BID 09/27/19 09/27/19 nitroglycerin 0.4 mg SUBLINGUAL PRN PRN 09/27/19 09/27/19 omeprazole 20 mg PO DAILY 09/27/19 09/27/19 pregabalin 100 mg PO BID 09/27/19 09/27/19 quetiapine [Seroquel] 100 mg PO HS 09/27/19 09/27/19 Allergies Allergy/AdvReac Type Severity Reaction Status Date / Time No Known Allergies Allergy Unverified 10/30/18 19:38 Review of Systems Review of Systems: All systems reviewed & are unremarkable except as noted in HPI and below ROS unobtainable: Yes unobtainable due to mental status PMFSH Past Medical History Medical History (Updated 02/12/20 @ 23:58 by Montana Mcmahon MD) Dementia Diabetes mellitus Social History Social History Smoking status: Former smoker Alcohol intake: never Substance use: never Gender identity (if verbalized by the patient): Male Spiritual care concerns: No Exam Const: Other: Lethargic but easily arousable to voice, mild distress, frail HENMT: Head: normal to inspection Ears: external ears normal General nose exam: Normal external nose present Eyes: Conjunctivae: conjunctivae normal Pupils: Equal, round and reactive pupils present EOM: EOMs intact bilaterally Neck: Neck: normal visual inspection Chest: Chest palpation & inspection: normal inspection of the chest Resp: Effort & Inspection: normal respiratory effort Auscultation: rhonchi Cardio: Rate: regular rate Rhythm: regular rhythm Heart sounds: Murmur heart sound present GI: GI Palp: Yes Soft to palpation, No Tenderness to palpation present (GI), No Guarding due to palpation present (GI) and No Rebound tenderness present Neuro: Other: Lethargic, oriented x1, not oriented to time and place, moves all 4 extremities Course Course Emergency Course: Patient reexamined at 11:30 PM, more alert and responsive at this time. Vital Signs Vital signs: Vital Signs Temperature 37.2 C 02/12/20 20:15 Pulse Rate 75 02/12/20 20:15 Respiratory Rate 20 02/12/20 20:15 Pulse Oximetry 96 02/12/20 20:15 Temperature 37.2 C 02/12/20 20:15 Pulse Rate 65 02/12/20 23:22 Respiratory Rate 18 02/12/20 23:22 Blood Pressure 151/69 H 02/12/20 23:22 Pulse Oximetry 90 02/12/20 23:22 MDM - Altered Mental Status MDM Narrative Medical decision making narrative: I reviewed his labs and his CT scans. Based on his findings, sepsis causing his altered mental status, source would be fro
[2020-02-12 20:54] LABS: Add Urine Microscopic? YES; Amorphous Sediment Urine Few; Appearance Urine Cloudy (Clear); Bacteria Urine Trace /hpf; Bilirubin Urine 1+ (Negative); Blood Urine Negative (Negative); Color Urine Amber (Yellow); Glucose Urine UA Negative (Negative); Ketones Urine Negative (Negative); Leukocyte Esterase Ur 3+ LEU/UL (Negative); Mucus Urine Rare /lpf; Nitrate Urine Negative (Negative); Protein Urine 2+ mg/dL (Negative); Squamous Epithelial Cell Urine Rare /hpf (Few); WBC Clumps Urine Present /HPF; WBC Urine >75 /hpf
[2020-02-12 20:56] VITALS: BP 107/68; PULSE 74; RESP 20; O2SAT 92
[2020-02-12 20:56] LABS: Specific Grav Ur 1.031 (1.001-1.035)
[2020-02-12 20:57] LABS: Alveolar/Arterial O2 Gradient 52.8 mmHg; Base Excess ABG 0.3 mEq/l (+/-2.0); Fractional Inspired Oxygen 21 %; HCO3 ABG 25.1 mEq/l (22.0-26.0); Methemoglobin ABG 0.1 %THb (0-1.5); Oxygen Content ABG 16.3 %vol (16.0-22.0); Oxyhemoglobin 82.8 % THb (90.0-100.0); PCO2 ABG 41.2 mmHg (35.0-45.0); PO2 FiO2 Ratio Arterial Blood 2.27 %; Reduced Hemoglobin 16.1 %THb (0-5.0); pH ABG 7.403 (7.350-7.450)
[2020-02-12 21:00] LABS: Device ROOM AIR; Modified Allen's Test Pass; Oxygen Saturation ABG 83.6 % (95.0-100.0); PO2 ABG 47.6 mmHg (80.0-100.0); Site Drawn LEFT RADIAL
[2020-02-12 21:01] LABS: Lactic Acid Reflex 1.8 mmol/L (0.7-2.1)
[2020-02-12 21:03] LABS: Alanine Aminotransferase 37 U/L (4-50); Albumin Level 4.5 g/dL (3.5-5.1); Alkaline Phosphatase 140 U/L (38-126); Anion Gap 11 mmol/L (8-16); Aspartate Amino Transferase 45 U/L (17-59); Blood Urea Nitrogen 39 mg/dL (9-20); Calcium 9.4 mg/dL (8.4-10.2); Carbon Dioxide 27 mmol/L (22-30); Chloride 105 mmol/L (98-107); Estimated Glomerular Filt Rate 53; Glucose 179 mg/dL (75-110); Potassium 4.5 mmol/L (3.4-5.0); Sodium 143 mmol/L (137-145)
[2020-02-12 21:53] VITALS: BP 128/74; PULSE 70; RESP 20; O2SAT 94
[2020-02-12 22:20] VITALS: BP 119/73; PULSE 73; RESP 17; O2SAT 92
[2020-02-12] MEDS: LACTATED RINGERS 1,000 ML 999 ML IV CONT (22:28)
[2020-02-12 23:22] VITALS: BP 151/69; PULSE 65; RESP 18; O2SAT 90
[2020-02-13] VITALS (10 sets, daily range): BP systolic 113–152; BP diastolic 61–105; PULSE 56–83; RESP 16–24; TEMP 35.9–37.1; O2SAT 92–99; BMI 25.9
--- NOTE | 2020-02-13 01:40 | ADMGEN ---
This patient, Kevin Gan, was admitted to [facility] S[facility] Room 333-01. Patient/family oriented to hospital policies and general routines including ID bracelet, bed and alarms, visiting hours, pain management, procedures, bathroom and other care routines, personal items, smoking policy, room service/diet, and visiting hours. Information on how to activate the Rapid Response Team has been discussed. Patient/Family are encouraged to report perceived risks to care and to ask questions if they do not understand what they are told or what they should do.
[2020-02-13] MEDS: ENOXAPARIN 40 MG/0.4 ML SYRINGE SUB-Q (10:29)
[2020-02-13 10:57] LABS: Basophils Absolute Auto 0.1 K/mm3 (0.0-0.1); Basophils Percent Auto 1.1 % (0.2-1.2); Eosinophils Absolute Auto 0.4 K/mm3 (0-0.3); Eosinophils Percent Auto 2.9 % (0-4.4); Hematocrit 40.3 % (42.0-52.0); Hemoglobin 13.4 g/dL (14.0-18.0); Immature Granulocyte Absolute 0.12 K/mm3 (0.00-0.031); Lymphocytes Absolute Auto 1.65 K/mm3 (0.9-3.2); Lymphocytes Percent Auto 13.5 % (18.3-44.2); Mean Corpuscular HGB Conc 33.3 g/dl (32-36); Mean Corpuscular Hemoglobin 33.5 pg (26-34); Mean Corpuscular Volume 100.8 fl (80-100); Monocytes Percent Auto 8.5 % (2.6-8.5); Neutrophils Absolute Auto 8.9 K/mm3 (1.3-6.7); Platelet Count Result 228 k/mm3 (150-375); Red Cell Distribution Width 13.7 % (11.5-14.5); White Blood Count 12.2 K/mm3 (4.5-10.0)
[2020-02-13 11:09] LABS: Alanine Aminotransferase 28 U/L (4-50); Albumin Level 4.1 g/dL (3.5-5.1); Alkaline Phosphatase 114 U/L (38-126); Anion Gap 8 mmol/L (8-16); Aspartate Amino Transferase 30 U/L (17-59); Bilirubin,Total 1.2 mg/dL (0.2-1.3); Blood Urea Nitrogen 35 mg/dL (9-20); Calcium 9.1 mg/dL (8.4-10.2); Carbon Dioxide 30 mmol/L (22-30); Chloride 103 mmol/L (98-107); Estimated CRCL calculation 59 ml/min; Estimated Glomerular Filt Rate > 60; Glucose 152 mg/dL (75-110); Magnesium 2.2 mg/dL (1.6-2.3); Potassium 3.8 mmol/L (3.4-5.0); Sodium 141 mmol/L (137-145)
[2020-02-13 11:13] LABS: CRP 6.5 mg/dL (<1.0)
[2020-02-13] MEDS: FLUoxetine HCL 20 MG CAPSULE 40 MG PO (11:47)
[2020-02-13] MEDS: busPIRone HCL 10 MG TABLET PO ×2 (11:47→20:43)
[2020-02-13] MEDS: LATANOPROST 0.005% OP SOLN 2.5 ML BTL 1 DROP EACH EYE (11:47)
[2020-02-13] MEDS: lisinopriL 2.5 MG TABLET PO (11:47)
[2020-02-13] MEDS: busPIRone HCL 5 MG TABLET PO ×2 (11:48→20:43)
[2020-02-13] MEDS: BRIMONIDINE TARTRATE 0.15% 5 ML OPHTH SOLN 1 DROP EACH EYE ×2 (11:48→16:25)
[2020-02-13 12:15] LABS: Hemoglobin A1C 7.1 % (<5.7)
[2020-02-13 12:35] LABS: SARS-CoV-2 RNA PCR Negative
--- NOTE | 2020-02-13 12:57 | PM.IMHP ---
H&P: HPI History of Present Illness Date/Time: 02/13/20 12:57 Chief complaint: lethargy Narrative: Date of Service 02/13/20 The supervising physician for this history and physical is Dr Mitchell. Mr. Gan is an 84yo M with dementia who presented to the ED from [facility] reportedly for evaluation of lethargy and hypoxia. Records show he had 84-88% on room air at the shelter. It is also reported his baseline cognitive status is oriented only to self. He is a poor historian and records are limited. Records in the EMR from previous hospitalization and med reconciliation suggest the patient has COPD, hypothyroidism, abdominal aortic aneurysm, coronary artery disease, diabetes and dyslipidemia. He is unable to tell me why he was brought to the hospital. He denies feeling short of breath. He has his eyes closed for my encounter but answers most of my questions. Workup thus far includes a chest CT that demonstrated right-sided pneumonia, CT brain without any for acute intracranial abnormalities. Blood work demonstrates leukocytosis, improving today, chronic macrocytic anemia, arterial blood gas demonstrated hypoxemia but possible mixed venous sample, urinalysis grossly abnormal. Urine and blood cultures sent. It is noted that he was hospitalized in September 2019 for healthcare acquired pneumonia. COVID negative today. He is admitted to the hospitalist service for management of UTI, acute respiratory failure with hypoxia secondary to pneumonia and I suspect he will require at least a 2-midnight stay for same. 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 Gan lives at [facility]. Unable to obtain details of social history due to dementia. PCP: Dr Garibay Full Code Status. Smoking status: Former smoker Alcohol intake: never Substance use: never Gender identity (if verbalized by the patient): Male Spiritual care concerns: No Meds Home Medications and Allergies Home Medications Medication Instructions Recorded Confirmed Type acetaminophen 650 mg PO Q6H PRN 09/27/19 02/13/20 History atorvastatin 40 mg PO HS 09/27/19 02/13/20 History brimonidine 1 drp OPHTHALMIC (EYE) TID 09/27/19 02/13/20 History budesonide-formoterol [Symbicort] 1 puff INHALATION Q12H 09/27/19 02/13/20 History buspirone 15 mg PO BID 09/27/19 02/13/20 History cyanocobalamin (vitamin B-12) 1,000 mcg IM MONTHLY 09/27/19 02/13/20 History diltiazem HCl [Cardizem] 120 mg PO DAILY 09/27/19 02/13/20 History ergocalciferol (vitamin D2) See Rx Instructions .ROUTE .COMPLEX 09/27/19 02/13/20 History fluoxetine 40 mg PO DAILY 09/27/19 02/13/20 History latanoprost 1 drp OPHTHALMIC (EYE) DAILY 09/27/19 02/13/20 History levothyroxine 100 mcg PO DAILY 09/27/19 02/13/20 History lisinopril 2.5 mg PO DAILY 09/27/19 02/13/20 History memantine 10 mg PO BID 09/27/19 02/13/20 History metformin 1,000 mg PO BID 09/27/19 02/13/20 History nitroglycerin See Rx Instructions .ROUTE 09/27/19 02/13/20 History .COMPLEX PRN omeprazole 20 mg PO DAILY 09/27/19 02/13/20 History pregabalin 100 mg PO BID 09/27/19 02/13/20 History quetiapine [Seroquel] 100 mg PO HS 09/27/19 02/13/20 History celecoxib 200 mg PO DAILY 02/13/20 02/13/20 History donepezil [Aricept] 10 mg PO HS 02/13/20 02/13/20 History loperamide 2 mg PO TID PRN 02/13/20 02/13/20 History Allergies
--- NOTE | 2020-02-13 14:40 | PCSTNOTE ---
Please refer to the Bedside Swallow Evaluation in the EMR. Please note, silent aspiration cannot be ruled out at bedside.
[2020-02-13] MEDS: ALBUTEROL SULFATE (*SP) AEROSOL 1 PUFF 2 PUFF INHALATION ×2 (15:08→21:12)
[2020-02-13] MEDS: MEMANTINE 10 MG TABLET PO (16:25)
[2020-02-13] MEDS: QUEtiapine FUMARATE 100 MG TABLET PO (20:43)
[2020-02-13] MEDS: ATORVASTATIN 40 MG TABLET PO (20:43)
[2020-02-13] MEDS: DONEPEZIL HCL 10 MG TABLET PO (20:43)
[2020-02-13 21:31] LABS: Glucose Point of Care 193 (65-105)
[2020-02-14] VITALS (7 sets, daily range): BP systolic 112–144; BP diastolic 43–82; PULSE 66–70; RESP 16–20; TEMP 36.1–36.8; O2SAT 94–97
[2020-02-14] MEDS: ALBUTEROL SULFATE (*SP) AEROSOL 1 PUFF 2 PUFF INHALATION ×4 (03:53→19:24)
[2020-02-14] MEDS: LEVOTHYROXINE SODIUM 100 MCG TABLET PO (06:08)
[2020-02-14 06:24] LABS: Basophils Absolute Auto 0.1 K/mm3 (0.0-0.1); Eosinophils Absolute Auto 0.4 K/mm3 (0-0.3); Eosinophils Percent Auto 2.8 % (0-4.4); Hematocrit 37.4 % (42.0-52.0); Hemoglobin 12.7 g/dL (14.0-18.0); Immature Granulocyte Absolute 0.12 K/mm3 (0.00-0.031); Lymphocytes Absolute Auto 1.68 K/mm3 (0.9-3.2); Lymphocytes Percent Auto 13.5 % (18.3-44.2); Mean Corpuscular Hemoglobin 33.2 pg (26-34); Mean Corpuscular Volume 97.9 fl (80-100); Mean Platelet Volume 10.9 fl (7.4-10.4); Monocytes Absolute Auto 1.2 K/mm3 (0.1-0.6); Monocytes Percent Auto 9.7 % (2.6-8.5); Platelet Count Result 240 k/mm3 (150-375); Red Blood Count 3.82 M/mm3 (4.6-6.20); Red Cell Distribution Width 13.4 % (11.5-14.5); White Blood Count 12.5 K/mm3 (4.5-10.0)
[2020-02-14 06:40] LABS: Alanine Aminotransferase 24 U/L (4-50); Albumin Level 3.9 g/dL (3.5-5.1); Alkaline Phosphatase 109 U/L (38-126); Anion Gap 6 mmol/L (8-16); Aspartate Amino Transferase 26 U/L (17-59); Bilirubin,Total 1.1 mg/dL (0.2-1.3); Blood Urea Nitrogen 26 mg/dL (9-20); Carbon Dioxide 30 mmol/L (22-30); Chloride 103 mmol/L (98-107); Estimated CRCL calculation 59 ml/min; Estimated Glomerular Filt Rate > 60; Glucose 179 mg/dL (75-110); Magnesium 2.1 mg/dL (1.6-2.3); Potassium 4.3 mmol/L (3.4-5.0); Sodium 139 mmol/L (137-145)
[2020-02-14] MEDS: BRIMONIDINE TARTRATE 0.15% 5 ML OPHTH SOLN 1 DROP EACH EYE ×3 (08:01→17:26)
[2020-02-14] MEDS: busPIRone HCL 10 MG TABLET PO ×2 (08:01→23:16)
[2020-02-14] MEDS: busPIRone HCL 5 MG TABLET PO ×2 (08:02→23:16)
[2020-02-14] MEDS: ENOXAPARIN 40 MG/0.4 ML SYRINGE SUB-Q (08:02)
[2020-02-14] MEDS: MEMANTINE 10 MG TABLET PO ×2 (08:03→17:27)
[2020-02-14] MEDS: lisinopriL 2.5 MG TABLET PO (08:03)
[2020-02-14] MEDS: LATANOPROST 0.005% OP SOLN 2.5 ML BTL 1 DROP EACH EYE (08:30)
[2020-02-14] MEDS: FLUoxetine HCL 20 MG CAPSULE 40 MG PO (08:31)
[2020-02-14] MEDS: FUROSEMIDE INJ 40 MG/4 ML VIAL IV PUSH (10:35)
--- NOTE | 2020-02-14 10:46 | PM.IMPN ---
Progress Note: A&P Assessment and Plan (1) Pneumonia: Qualifiers: Laterality: right Lung location: unspecified part of lung Pneumonia type: due to unspecified organism Qualified Code(s): J18.9 - Pneumonia, unspecified organism Code(s): J18.9 - Pneumonia, unspecified organism Status: Acute Assessment and Plan: Right-sided pneumonia, COVID negative. HCAP vs. aspiration. Obtain sputum culture, urine antigens pending. Albuterol MDI. Continue Zosyn (day 2). Continue supplemental oxygen, wean as tolerated to keep O2 saturation > 90%. ST bedside eval said no overt s/s aspiration but recommends pureed diet since he doesn't have his dentures. (2) Acute respiratory failure with hypoxia: Code(s): J96.01 - Acute respiratory failure with hypoxia Status: Acute Assessment and Plan: Secondary to pneumonia. See above. (3) Sepsis: Qualifiers: Sepsis acute organ dysfunction status: unspecified Sepsis type: sepsis due to unspecified organism Qualified Code(s): A41.9 - Sepsis, unspecified organism Code(s): A41.9 - Sepsis, unspecified organism Status: Acute Assessment and Plan: On arrival with leukocytosis and tachypnea. Suspected source respiratory. Continue IV Zosyn; blood cultures pending with no growth to date. Monitor urine output and vital signs. (4) Diabetes mellitus: Qualifiers: Diabetes mellitus type: type 2 Diabetes mellitus half-way insulin use: without intermediate teacher use Diabetes mellitus complication status: without complication Qualified Code(s): E11.9 - Type 2 diabetes mellitus without complications Code(s): E11.9 - Type 2 diabetes mellitus without complications Status: Chronic Assessment and Plan: Hgb A1c 7.1%. Metformin held. Monitor Accu-Cheks and cover with sliding scale insulin. (5) Dementia: Qualifiers: Dementia type: Alzheimer's disease Alzheimer's disease onset: late-onset Dementia behavioral disturbance: without behavioral disturbance Qualified Code(s): G30.1 - Alzheimer's disease with late onset; F02.80 - Dementia in other diseases classified elsewhere without behavioral disturbance Code(s): F03.90 - Unspecified dementia without behavioral disturbance Status: Chronic Assessment and Plan: Stable. Continue his home medications with Aricept and Namenda. (6) Essential hypertension: Code(s): I10 - Essential (primary) hypertension Status: Chronic Assessment and Plan: BPs reviewed stable/on lower end this afternoon. Continue his home medications and monitor BP. (7) Bacteriuria: Code(s): R82.71 - Bacteriuria Status: Acute Assessment and Plan: UA grossly abnormal. Urine culture results are indeterminate and suspected to be colonizers. Subjective Date/time seen: 02/14/20 10:30 Interval history: Mr. Gan is an 84yo M with dementia admitted for pneumonia. He tells me he feels okay today, reports low back pain which is chronic. He has dementia thus review of systems is difficult to obtain. RN tells me he has been hallucinating this morning, reaching for things. I attempted calling son, Cj, listed in the cart to discuss updates. No answer x 3 and number seems disconnected. I spoke with a nurse at [facility] that is familiar with Alberto. She tells me it's possible Cj may be in [facility] and there are no other family members I could contact. Nurse told me the hallucinating is not new for him, that they too have witnessed him doing that in the last few months. She states she recognizes that overall his health and cognition has been declin
--- NOTE | 2020-02-14 11:40 | PCPTNOTE ---
Patient refused physical therapy evaluation despite multiple options for assessment, patient is disoriented and easily agitated with attempts to persuade. Nursing notified. Try evaluation tomorrow.
[2020-02-14 12:39] LABS: Glucose Point of Care 189 (65-105)
[2020-02-14 22:15] LABS: Glucose Point of Care 192 (65-105)
[2020-02-14] MEDS: DONEPEZIL HCL 10 MG TABLET PO (23:16)
[2020-02-14] MEDS: ATORVASTATIN 40 MG TABLET PO (23:16)
[2020-02-14] MEDS: QUEtiapine FUMARATE 100 MG TABLET PO (23:16)
[2020-02-14 23:26] LABS: Glucose Point of Care 183 (65-105)
[2020-02-15] MEDS: ALBUTEROL SULFATE (*SP) AEROSOL 1 PUFF 2 PUFF INHALATION ×2 (01:39→09:34)
[2020-02-15 05:47] VITALS: BP 131/72; PULSE 72; RESP 20; TEMP 36.6; O2SAT 90
[2020-02-15] MEDS: LEVOTHYROXINE SODIUM 100 MCG TABLET PO (05:57)
[2020-02-15 08:00] VITALS: BP 100/68; PULSE 56; RESP 14; TEMP 37; O2SAT 99
[2020-02-15 09:38] LABS: Glucose Point of Care 267 (65-105)
[2020-02-15] MEDS: MEMANTINE 10 MG TABLET PO ×2 (09:40→17:09)
[2020-02-15] MEDS: busPIRone HCL 5 MG TABLET PO (09:40)
[2020-02-15] MEDS: busPIRone HCL 10 MG TABLET PO (09:40)
[2020-02-15] MEDS: ENOXAPARIN 40 MG/0.4 ML SYRINGE SUB-Q (09:40)
[2020-02-15] MEDS: FLUoxetine HCL 20 MG CAPSULE 40 MG PO (09:40)
[2020-02-15] MEDS: lisinopriL 2.5 MG TABLET PO (09:40)
[2020-02-15] MEDS: BRIMONIDINE TARTRATE 0.15% 5 ML OPHTH SOLN 1 DROP EACH EYE ×3 (09:40→17:09)
[2020-02-15] MEDS: LATANOPROST 0.005% OP SOLN 2.5 ML BTL 1 DROP EACH EYE (09:40)
[2020-02-15] MEDS: INSULIN ASPART (*BKC) 100 UNITS/ML SUB-Q ×2 (09:44→12:30)
[2020-02-15 09:56] VITALS: O2SAT 92
--- NOTE | 2020-02-15 11:06 | PCPTNOTE ---
Attempted PT eval, pt sleeping and unable to arouse. Will try again at later time.
--- NOTE | 2020-02-15 13:27 | PCPTNOTE ---
Attempted PT eval. Pt gone for MRI. Will try again at later time.
[2020-02-15 14:25] LABS: Glucose Point of Care 201 (65-105)
--- NOTE | 2020-02-15 15:56 | PCRCNOTE ---
Window of time for administration has passed. See next scheduled administration.
--- NOTE | 2020-02-15 15:58 | PCRCNOTE ---
Window of time for administration has passed. See next scheduled administration.
--- NOTE | 2020-02-15 16:22 | PM.DS ---
DS: Admitting Diagnosis Admitting Diagnosis Admitting Diagnosis: lethargy DS: Discharge Diagnosis Discharge Diagnosis (1) Pneumonia: Qualifiers: Laterality: right Lung location: unspecified part of lung Pneumonia type: due to unspecified organism Qualified Code(s): J18.9 - Pneumonia, unspecified organism Code(s): J18.9 - Pneumonia, unspecified organism Status: Acute Assessment and Plan: Date of Admission 02/12/20 Date of Discharge/DOS 02/15/20 Mr. Gan is an 84yo M with dementia, COPD, type 2 diabetes mellitus and hypertension who presented to the ED from [facility] for evaluation of lethargy and O2 saturations 84-88% on room air at the group home. He is a poor historian and has few records for review. Imaging demonstrated evidence of predominantly right-sided pneumonia. COVID negative. He was treated for sepsis and pneumonia with IV antibiotics and supportive care including albuterol and supplemental oxygen. He requires 2L/min supplemental oxygen nasal cannula on day of discharge. He showed no overt signs or symptoms of aspiration with speech therapy during a bedside evaluation but he was kept on a pureed diet due to not having his dentures here. He showed clinical improvement and was hemodynamically stable for discharge on 02/15/20 with instructions to be seen by group home provider within 1 week. He was noted to have incidental finding of left paraspinal mass around T9-T10 seen on CT chest. Records are few and he is not able to provide a meaningful history, but he has had multiple XRs and MRIs recently seemingly for indication of back pain based on the chart. Proceeded with MRI thoracic spine for further evaluation which demonstrated a left sided lateral meningocele at T9-T10. NIKI lower extremities are neurovascularly intact and he is moving all limbs spontaneously. No issues with bowel or bladder dysfunction at present. Would recommend monitoring in this elderly gentleman with dementia who would be a poor surgical candidate at this time. Right-sided pneumonia, COVID negative. HCAP vs. aspiration.Albuterol MDI. Received 3 days IV zosyn, discharge with oral ABX to complete the course. Continue supplemental oxygen, wean as tolerated to keep O2 saturation > 90%. ST bedside francis said no overt s/s aspiration but recommends pureed diet since he doesn't have his dentures. (2) Acute respiratory failure with hypoxia: Code(s): J96.01 - Acute respiratory failure with hypoxia Status: Acute Assessment and Plan: Secondary to pneumonia. See above. (3) Sepsis: Qualifiers: Sepsis acute organ dysfunction status: unspecified Sepsis type: sepsis due to unspecified organism Qualified Code(s): A41.9 - Sepsis, unspecified organism Code(s): A41.9 - Sepsis, unspecified organism Status: Acute Assessment and Plan: On arrival with leukocytosis and tachypnea. Suspected source respiratory. Treated with IV zosyn, discharge with oral ABX. Blood cultures are negative. Urine culture suggestive of colonized bacteria. (4) Diabetes mellitus: Qualifiers: Diabetes mellitus type: type 2 Diabetes mellitus [facility] insulin use: without exterminator helper use Diabetes mellitus complication status: without complication Qualified Code(s): E11.9 - Type 2 diabetes mellitus without complications Code(s): E11.9 - Type 2 diabetes mellitus without complications Status: Chronic Assessment and Plan: Hgb A1c 7.1%. Metformin held, resume at dc. (5) Dementia: Qualifiers: Dementia type: Alzheimer's disease Alzheimer's disease onset: late-onset Dementia behavioral disturbance: without behavioral disturbance Qualified Code(s): G30.1 - Alzheime
[2020-02-15 17:37] LABS: Glucose Point of Care 177 (65-105)
[2020-02-16 23:46] LABS: Pneumococcal Antigen Urine Not Detected (Not Detected)
[2020-02-18 01:28] LABS: Legionella pneumophila Ag Ur Not Detected (Not Detected)
--- NOTE | 2020-02-23 14:32 | PC.NURSE ---
Blood cx is negative.
== END 2020-02-15 19:19 | DRG 871 ==
LOC: ANHED 23:58 → ANH3MEDSUR 02-13 04:42
PROVIDERS: Emergency Medicine; Admitting Provider Family Medicine; Emergency Provider Emergency Medicine; PCP Internal Medicine; Visit Provider Physician Assistant
DX: A41.9 Sepsis, unspecified organism (principal); J18.9 Pneumonia, unspecified organism; J96.01 Acute respiratory failure with hypoxia; E11.9 Type 2 diabetes mellitus without complications; F03.90 Unspecified dementia, unspecified severity, without behavioral disturbance, psychotic disturbance, mood disturbance, and anxiety; Z20.828 Contact with and (suspected) exposure to other viral communicable diseases; R82.71 Bacteriuria; E03.9 Hypothyroidism, unspecified; J44.9 Chronic obstructive pulmonary disease, unspecified; I71.4 Abdominal aortic aneurysm, without rupture; I25.10 Atherosclerotic heart disease of native coronary artery without angina pectoris; E78.5 Hyperlipidemia, unspecified; I11.0 Hypertensive heart disease with heart failure; I50.9 Heart failure, unspecified; H40.1190 Primary open-angle glaucoma, unspecified eye, stage unspecified; G96.198 Other disorders of meninges, not elsewhere classified; Z87.891 Personal history of nicotine dependence
CPT/HCPCS: 36415; 36600; 51701; 70450; 71250; 72157; 80053; 81001; 82375; 82728; 82805; 83036; 83050; 83605; 83735; 85025; 86140; 87040; 87086; 87088; 87449; 87635; 87899; 92610; 93005; 94640; 96361; 96365; 97165; 99285; A9270; A9577; C9803; J1650; J1815; J1940; J2543; J7120; U0003

== ENCOUNTER 2020-05-11 12:37 | Outpatient (NON) | payer MEDICARE, SELFPAY ==
[2020-05-11 13:14] LABS: Basophils Absolute Auto 0.11 K/mm3 (0.00-0.10); Basophils Percent Auto 1.2 % (0.0-1.0); Eosinophils Absolute Auto 0.35 K/mm3 (0.02-0.50); Eosinophils Percent Auto 3.7 % (1.0-6.0); Hematocrit 37.7 % (37.0-46.0); Hemoglobin 12.5 g/dL (12.4-15.3); Immature Granulocyte Absolute 0.18 K/mm3 (0.00-0.00); Immature Granulocyte Percent A 1.9 % (0.0-0.0); Lymphocytes Absolute Auto 1.93 K/mm3 (1.10-4.50); Lymphocytes Percent Auto 20.3 % (18.0-42.0); Mean Corpuscular HGB Conc 33.2 g/dL (32.0-36.0); Mean Corpuscular Hemoglobin 33.1 pg (27.0-31.0); Mean Corpuscular Volume 99.7 fL (78.0-102.0); Mean Platelet Volume 11.3 fl (8.7-11.0); Monocytes Absolute Auto 1.13 K/mm3 (0.10-0.90); Monocytes Percent Auto 11.9 % (2.0-11.0); Neutrophils Absolute Auto 5.8 K/mm3 (1.7-7.2); Platelet Count Result 214 K/mm3 (150-420); Red Blood Count 3.78 M/mm3 (4.70-6.10); Red Cell Distribution Width 13.5 % (11.6-14.4); White Blood Count 9.5 K/mm3 (4.8-10.8)
[2020-05-11 13:25] LABS: Alanine Aminotransferase 23 U/L (16-63); Albumin Level 4.1 g/dL (3.4-5.0); Alkaline Phosphatase 75 U/L (46-116); Anion Gap 10 mmol/L (8-16); Aspartate Amino Transferase 14 U/L (15-37); Bilirubin,Total 0.8 mg/dL (0.00-1.00); Blood Urea Nitrogen 24 mg/dL (7-18); Calcium 8.9 mg/dL (8.5-10.1); Carbon Dioxide 25 mmol/L (21-32); Chloride 106 mmol/L (98-108); Estimated Glomerular Filt Rate 57; Glucose 138 mg/dL (70-99); Lipase 411 U/L (73-393); Osmolality Calculated 298 mOsm/kg (285-295); Sodium 141 mmol/L (136-145)
== END 2020-05-11 12:38 ==
PROVIDERS: Visit Provider Internal Medicine
DX: R10.30 Lower abdominal pain, unspecified (principal); R53.83 Other fatigue
CPT/HCPCS: 36415; 80053; 83690; 85025

== ENCOUNTER 2020-05-13 06:22 | Outpatient (NON) | payer MEDICARE, SELFPAY ==
[2020-05-13 06:35] LABS: Add Urine Microscopic? YES; Appearance Urine Sl Cloudy (Clear); Bilirubin Urine Negative (Negative); Blood Urine Negative (Negative); Color Urine Yellow (Yellow); Glucose Urine UA Negative (Negative); Ketones Urine Negative (Negative); Leukocyte Esterase Ur Negative LEU/UL (Negative); Nitrate Urine Negative (Negative); Protein Urine Negative (Negative); Specific Grav Ur >= 1.030 (1.010-1.020); Urobilinogen Urine 0.2 mg/dL (0.2-1.0)
[2020-05-13 06:42] LABS: RBC Urine 0-2 /hpf (0-2); WBC Urine 0-3 /hpf (0-3)
[2020-05-13 06:43] LABS: Amorphous Sediment Urine Few; Squamous Epithelial Cell Urine Rare /hpf (Few)
[2020-05-13 06:44] LABS: Bacteria Urine None seen /hpf
== END 2020-05-13 06:23 ==
LOC: CHSLAB 06:23
PROVIDERS: Visit Provider Internal Medicine
DX: N39.0 Urinary tract infection, site not specified (principal)
CPT/HCPCS: 81001

== ENCOUNTER 2020-08-06 15:36 | Outpatient (NON) | payer MEDICARE, SELFPAY ==
[2020-08-06 16:00] LABS: Add Urine Microscopic? YES; Appearance Urine Sl Cloudy (Clear); Bilirubin Urine Negative (Negative); Blood Urine Negative (Negative); Color Urine Yellow (Yellow); Glucose Urine UA Negative (Negative); Ketones Urine Negative (Negative); Leukocyte Esterase Ur Trace (Negative); Nitrate Urine Positive (Negative); Protein Urine Negative (Negative); Urobilinogen Urine 0.2 mg/dL (0.2-1.0); pH Urine 8.5 (5.0-8.0)
[2020-08-06 16:11] LABS: Amorphous Sediment Urine Few; Bacteria Urine Trace /hpf; RBC Urine 0-2 /hpf (0-2); Squamous Epithelial Cell Urine Few /hpf (Few); Triple Phosphate Crystal Urine Present /hpf
== END 2020-08-06 15:37 | disposition home or self-care (01) ==
LOC: CHSLAB 08-11 08:32
PROVIDERS: PCP Internal Medicine; Visit Provider Internal Medicine
DX: N39.0 Urinary tract infection, site not specified (principal)
CPT/HCPCS: 81001; 87077; 87086; 87088; 87186